=== PATIENT | male | born 2000 | race Caucasian/White ===

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

== ENCOUNTER 2021-09-10 13:26 | Emergency (ER) | payer BC, SELFPAY ==
--- OUTSIDE RECORDS SUMMARY | 2021-09-10 13:29 | XMS REPORT | Continuity of Care Document ---
:2000 Author Organization [facility] t Address [address] [place] [address] Care Team Providers Name Role Phone PCP, DOES NOT HAVE A Primary Care Physician Unavailable elias Attending Clinician Unavailable Cristela Birch MD Attending Clinician Cristela BIRCH Attending Clinician Unavailable Angela BUSH III Attending Clinician Unavailable Fredrick Chou DO Attending Clinician [email or web address] Admitting Clinician Unavailable Angela BUSH III Admitting Clinician Unavailable Payers Payer Name Policy Type Policy Number Effective Date Expiration Date S [place] [id number] 2014 00:00:00 [place] Problems Condition Condition Condition Status Onset Resolution Last Treating Co mments Source Name Details Category Date Date Treatment Clinician Date No known No known Disease Unive rs active active ity of problems problems [facility] Allergies, Adverse Reactions, Alerts Allergy Allergy Status Severity Reaction(s) Onset Inactive Treating Comm ents Source Name Type Date Date Clinician NO KNOWN Drug Active Univers ALLERGIE Class ity of S [facility] Social History Social Habit Start Date Stop Date Quantity Comments Source Exposure to SARS-CoV-2 Not sure [facility] [place] (event) [facility] Sex Assigned At Uni versity [facility] Smoking Status Start Date Stop Date Source Unknown if ever smoked [facility] y [facility] Medications Ordered Filled Start Stop Current Ordering Indication Dosage Frequency Signature Comments Components Source Medication Medication Date Date Medication? Clinician (SIG) Name Name erythromyci 2020-0 2020- No .5[in_u 0.5 Inch, Univers n 11-25 s] Both Eyes, ity of (ILOTYCIN) 09:15: 08:05 ONCE, 1 [place] as 5 mg/gram 00 :00 dose, Wed Medic al (0.5 %) 11/26/19 at [place] ophthalmic 0415, SHAYAN ointment 0.5 Inch HYDROcodone 2020- No 1{tbl} 1 tablet, Univers -acetaminop 11-25 Oral, ONCE i ty of hen (NORCO) 09:15: 08:05 NOW, 1 [place] as 10-325 mg 00 :00 dose, Wed Medic al tablet 1 11/26/19 at Branch tablet 0415, Routine traMADoL Yes [id number] 50mg Take 1 Univers (ULTRAM) 50 11-25 tablet by ity of mg tablet 00:00: mouth [place] 00 every 6 Medical (six) Branch hours as needed for Pain (scale 7-10). Indication s: acute pain erythromyci 2020- No [id number] .5[in_u Place 0.5 Univers n 5 mg/gram 11-25 s] Inches in it y of (0.5 %) 00:00: 04:59 [place] ophthal[place] 00 :00 4 (four) Medic al ointment times Branch daily for 5 days. Continue until you follow up with eye doctor. ondansetron 2018-03 Yes [id number] 4mg Take 1 Univers (ZOFRAN 2-05 tablet by ity of ODT) 4 mg 00:00: mouth [place] disintegrat 00 every 8 Medic al ing tablet (eight) Branch hours as needed for Nausea and Vomiting (N/V). traMADol 2018-03 Yes [id number] 50mg Take 1 Uni vers (ULTRAM) 50 2-05 tablet by ity of mg tablet 00:00: mouth [place] 00 every 8 Medical (eight) Branch hours as needed for Pain (scale 4-6). cephALEXin 2019- No [id number] 500mg Take 1 Univers (KEFLEX) 11-18 [id number] capsule by it y of 500 mg 00:00: 04:59 mouth 4 [place] capsule 00 :00 (four) Medical times Branch daily for 7 days. Vital Signs Vital Name Observation Time Observation Value Comments Source Systolic blood 2019-11-26 07:17:00 128 mm[Hg] Univer sity of pressure [place] [facility] Diastolic blood 2019-11-26 07:17:00 73 mm[Hg] Unive rsity of pressure [place] [facility] Heart rate 2019-11-26 07:17:00 88 /min [facility]i [facility] [place] [facility] [place] Body temperature 2019-11-26 07:17:00 36.11 [place] Univ ers[facility] [place] [facility] Respiratory rate 2019-11-26 07:17:00 18 /min Univ [facility] [place] [facility] Body weight 2019-11-26 07:17:00 63.504 kg [facility] [place] [facility] Oxygen saturation in 2019-11-26 07:17:00 99 /min University of Arterial blood by [facility] Pulse oximetry Branch Body temperature 2018-11-18 14:39:00 37.06 [place] [facility] [place] [facility] Respiratory rate 2018-11-18 14:39:00 18 /min Univ [facility] [place] [facility] Body weight 2018-11-18 14:39:00 54.432 kg [facility] [place] [facility] [place] Oxygen saturation in 2018-11-18 14:39:00 99 /min University of Arterial blood by [facility] Pulse oximetry Branch Systolic blood 2018-11-18 14:39:00 105 mm[Hg] Univer sity of pressure [place] [facility] Diastolic blood 2018-11-18 14:39:00 81 mm[Hg] Unive rsity of pressure [place] [facility] Heart rate 2018-11-18 14:39:00 96 /min [facility] [place] [facility] Procedures Procedure Date / Time Performed Performing Clinician [facility] e NOTICE OF PRIVACY 2019-11-26 07:15:17 Doctor Unassigned, No Univ ersity of [facility] Name Medical Branch CONSENT/REFUSAL FOR 2019-11-26 07:14:49 [facility] Branch TREATMENT NOTICE OF PRIVACY 2018-11-18 14:29:19 Doctor Unassigned, No Univ ersity of [facility] Name Medical Branch Encounters Start End Encounter Admission Attending Care Care Encounter Source Date/Time Date/Time Type Type Clinicians Facility Department ID 2020-02-04 2020-02-04 Outpatient keffer_a [facility] [id number] [place] 02:46:00 02:46:00 [facility] 2019-11-26 2019-11-26 Emergency Yaride, [facility] [id number] Univers 02:18:00 03:18:00 Fang Solano [id number] ity of [place] [id number] [facility] [id number] [place] [address] Branch 2019-11-26 2019-11-26 [facility] [id number] Univers 02:18:00 02:18:00 FANG [facility] 2019-02-20 2019-02-20 Emergency X ELEAZAR MCGINNIS, [facility] ERT [id number] Univers 18:22:53 20:16:00 SILVINA [facility] 2018-11-18 2018-11-18 Emergency [facility] [id number] Univers 09:41:11 10:30:00 Salima Solano [id number] ity of [place] [id number] [facility] [id number] [place] [address] Branch Results This patient has no known results.
[2021-09-10] MEDS ORDERED: CYCLOBENZAPRINE 10 MG TAB ONE (14:12)
[2021-09-10] MEDS ORDERED: KETOROLAC 30 MG/ML INJ ONE (14:13)
--- NOTE | 2021-09-10 14:44 | RAD REPORT ---
EXAM DESCRIPTION: RAD - C Spine Ap/Lat - 09/10/2021 2:28 pm CLINICAL HISTORY: PAIN COMPARISON: No comparisons FINDINGS: No acute fracture. Reversal of the normal cervical lordosis this could be positional or se condary to spasm. No significant focal degenerative changes. IMPRESSION: No acute osseous abnormality involving the cervical spine.
--- NOTE | 2021-09-10 14:44 | RAD REPORT ---
EXAM DESCRIPTION: RAD - Shoulder Right 2 View - 09/10/2021 2:28 pm CLINICAL HISTORY: PAIN COMPARISON: No comparisons FINDINGS/IMPRESSION: No acute fracture. No malalignment. No significant focal degenerative changes.
--- NOTE | 2021-09-10 14:45 | RAD REPORT ---
EXAM DESCRIPTION: RAD - Clavicle Right - 09/10/2021 2:28 pm CLINICAL HISTORY: PAIN COMPARISON: No comparisons FINDINGS: No acute fracture. No malalignment. No significant focal degenerative changes. IMPRESSION: No acute osseous abnormality involving the right clavicle.
--- NOTE | 2021-09-10 14:55 | EDPHYS ---
Physician Documentation [facility] Name: Sadiq Martinez Age: 21 yrs Sex: Male : 2000 Arrival Date: 09/10/2021 Time: 13:27 Bed 11 Private MD: ED Physician Nishant Whaley HPI: 09/10 13:45 This 21 yrs old Male presents to ER via Ambulatory with complaints of Neck Pain, <24hrs jh7 Old, Arm Pain, Shoulder Pain. 13:45 Onset: The symptoms/episode began/occurred 2 month(s) ago. Patient presents for jh7 right-sided neck, right collarbone, and right shoulder pain over the past 2 months. 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 No neurodeficits at this time.. Historical: - Allergies: 13:41 No Known Allergies; ld1 - Home Meds: 13:41 None [Active]; ld1 - PMHx: 13:41 None; ld1 - PSHx: 13:41 None; ld1 - Immunization history:: Adult Immunizations up to date, Client reports having NOT received the Covid vaccine. - Social history:: Smoking status: Patient reports the use of cigarette tobacco products, smokes one-half pack cigarettes per day, Patient uses alcohol, but reports only rare drinking. Patient/guardian denies using street drugs. ROS: 13:45 Constitutional: Negative for fever, chills, and weight loss, ENT: Negative for injury, jh7 pain, and discharge, Cardiovascular: Negative for chest pain, palpitations, and edema, Respiratory: Negative for shortness of breath, cough, wheezing, and pleuritic chest pain, Abdomen/GI: Negative for abdominal pain, nausea, vomiting, diarrhea, and constipation, Back: Negative for injury and pain, Skin: Negative for injury, rash, and discoloration, Neuro: Negative for headache, weakness, numbness, tingling, and seizure. 13:45 Neck: Positive for pain with movement, stiffness, tenderness, Negative for swelling. 13:45 MS/extremity: Positive for pain, tenderness, Negative for acute changes, contusion, laceration, swelling. Exam: 13:45 Constitutional: This is a well developed, well nourished patient who is awake, alert, jh7 and in no acute distress. ENT: Nares patent. No nasal discharge, no septal abnormalities noted. Mucous membranes moist. Chest/axilla: Normal chest wall appearance and motion. Nontender with no deformity. No lesions are appreciated. Cardiovascular: Regular rate and rhythm with a normal S1 and S2. No gallops, murmurs, or rubs. Normal PMI, no JVD. No pulse deficits. Respiratory: Lungs have equal breath sounds bilaterally, clear to auscultation and percussion. No rales, rhonchi or wheezes noted. No increased work of breathing, no retractions or nasal flaring. Abdomen/GI: Soft, non-tender, with normal bowel sounds. No distension or tympany. No guarding or rebound. No evidence of tenderness throughout. Skin: Warm, dry with normal turgor. Normal color with no rashes, no lesions, and no evidence of cellulitis. Neuro: Awake and alert, GCS 15, oriented to person, place, time, and situation. Motor strength 5/5 in all extremities. Sensory grossly intact. Normal gait. 13:45 Neck: External neck: Tenderness noted to right paraspinal C-spine with no tenderness over the spine, deformity, or step-off. No swelling is also noted., C-spine: appears grossly normal, ROM/movement: limited range of motion, that is mild, when rotating to the left, with flexion, with extension. 13:45 Musculoskeletal/extremity: Extremities: all appear grossly normal, with no appreciated pain with palpation, ROM: limited active range of motion, in the right scapular area and right trapezius, Difficulty with abduction of the R shoulder beyond 90 degrees, Circulation is intact in all extremities. Sensation intact. Vital Signs: 13:40 BP 117 / 55; Pulse 69; Resp 18; Temp 98.1(TE); Pulse Ox 98% on R/A; Weight 72.57 kg; ld1 Height 5 ft. 8 in. (172.72 cm); Pain 6/10; 13:40 Body Mass Index 24.33 (72.57 kg, 172.72 cm) ld1 MDM: 13:48 Patient medically screened. [facility] 15:00 Differential diagnosis: arthritis, cervical strain, torticollis, Whiplash Injury. Data [facility] reviewed: vital signs, nurses notes, radiologic studies, plain films. Data interpreted: Pulse oximetry: is 98 %. Interpretation: normal. Counseling: I had a detailed discussion with the patient and/or guardian regarding: the historical points, exam findings, and any diagnostic results supporting the discharge/admit diagnosis, the need for outpatient follow up, a orthopedic surgeon, to return to the emergency department if symptoms worsen or persist or if there are any questions or concerns that arise at home. ED course: Informed the patient of his negative x-ray results. Symptoms improved after medication administration. Informed him that since he has been having this pain for 1 to 2 months, he should follow-up with Ortho if symptoms persist. He may return to the ER at any time if any new concerning symptoms develop.. 09/10 13:54 Order name: XRAY C Spine Ap/lat; Complete Time: 14:57 [facility] 09/10 13:54 Order name: XRAY Clavicle RIGHT; Complete Time: 14:57 [facility] 09/10 13:54 Order name: XRAY Shoulder RIGHT 2 view; Complete Time: 14:57 [facility] Administered Medications: 15:01 Drug: Flexeril (cyclobenzaprine) 10 mg Route: PO; ld1 15:01 Drug: Ketorolac 60 mg Route: IM; Site: right deltoid; ld1 Disposition Summary: 09/10/21 14:55 Discharge Ordered Location: Home [facility] Problem: an ongoing problem [facility] Symptoms: have improved [facility] Condition: Stable 7 Diagnosis - Muscle spasm 7 Followup: [facility] - With: Emergency Department - When: 2 - 3 days - Reason: Recheck today's complaints Discharge Instructions: - Discharge Summary Sheet [facility] - Muscle Strain [facility] - Shoulder Pain [facility] Forms: - Medication Reconciliation Form [facility] - Thank You Letter [facility] Prescriptions: - Naprosyn 500 mg Oral Tablet - take 1 tablet by ORAL route 2 times per day take with food; 30 tablet; Refills: 7 0, Product Selection Permitted - Zanaflex 4 mg Oral Tablet - take 1 tablet by ORAL route every 8 hours As needed; 20 tablet; Refills: 0, jh7 Product Selection Permitted Addendum: 09/11/2021 18:00 Co-signature as Attending Physician, Nishant Whaley MD. m a2 Signatures: Dispatcher [employer] EDNishant Mark MD MD ma2 Malina Villavicencio RN RN ld1 Suzie Santiago FNP FNP jh7
--- NOTE | 2021-09-10 14:55 | ER ---
Nurse's Notes [facility] Name: Sadiq Martinez Age: 21 yrs Sex: Male : 2000 Arrival Date: 09/10/2021 Time: 13:27 Bed 11 Private MD: Diagnosis: Muscle spasm Presentation: 09/10 13:40 Chief complaint: Patient states: Right shoulder, collar bone, neck pain - radiates back ld1 around my shoulder blade. Denies injury. Pain began 1-2 months ago. "I have been trying to deal with it but it is getting worse." Feels like it constantly needs to be popped. Coronavirus screen: At this time, the client does not indicate any symptoms associated with coronavirus-19. Ebola Screen: No symptoms or risks identified at this time. Acute neurological deficit: none identified. Initial Sepsis Screen: Does the patient meet any 2 criteria? No. Patient's initial sepsis screen is negative. Does the patient have a suspected source of infection? No. Patient's initial sepsis screen is negative. Risk Assessment: Do you want to hurt yourself or someone else? Patient reports no desire to harm self or others. Onset of symptoms was September 10, 2021. 13:40 Method Of Arrival: Ambulatory ld1 13:40 Acuity: FERNANDO 4 ld1 Triage Assessment: 13:41 General: Appears in no apparent distress. comfortable, Behavior is calm, cooperative, ld1 appropriate for age. Pain: Complains of pain in right arm Pain radiates to right trapezius, right scapular area and right subscapular area Pain currently is 6 out of 10 on a pain scale. at worst was 10 out of 10 on a pain scale. EENT: No signs and/or symptoms were reported regarding the EENT system. Neuro: Level of Consciousness is awake, alert, obeys commands, Oriented to person, place, time, situation. Cardiovascular: Capillary refill < 3 seconds Patient's skin is warm and dry. Respiratory: Airway is patent Respiratory effort is even, unlabored. GI: Abdomen is flat, non-distended. : No signs and/or symptoms were reported regarding the genitourinary system. Derm: No signs and/or symptoms reported regarding the dermatologic system. Musculoskeletal: Reports pain in back and right arm. Historical: - Allergies: 13:41 No Known Allergies; ld1 - Home Meds: 13:41 None [Active]; ld1 - PMHx: 13:41 None; ld1 - PSHx: 13:41 None; ld1 - Immunization history:: Adult Immunizations up to date, Client reports having NOT received the Covid vaccine. - Social history:: Smoking status: Patient reports the use of cigarette tobacco products, smokes one-half pack cigarettes per day, Patient uses alcohol, but reports only rare drinking. Patient/guardian denies using street drugs. Screenin:06 Abuse screen: Denies threats or abuse. Denies injuries from another. Nutritional ld1 screening: No deficits noted. Tuberculosis screening: No symptoms or risk factors identified. Fall Risk None identified. Assessment: 15:06 Reassessment: see triage assessment. ld1 Vital Signs: 13:40 BP 117 / 55; Pulse 69; Resp 18; Temp 98.1(TE); Pulse Ox 98% on R/A; Weight 72.57 kg; ld1 Height 5 ft. 8 in. (172.72 cm); Pain 6/10; 13:40 Body Mass Index 24.33 (72.57 kg, 172.72 cm) ld1 ED Course: 13:27 Patient arrived in ED. am2 13:37 [facility] jh7 13:37 Nishant Whaley MD is Attending Physician. jh7 13:41 Triage completed. ld1 13:41 Arm band placed on right wrist. ld1 14:08 Cally Leavitt, EV is Primary Nurse. jl7 14:29 XRAY C Spine Ap/lat In Process Unspecified. EDMS 14:29 XRAY Clavicle RIGHT In Process Unspecified. EDMS 14:29 XRAY Shoulder RIGHT 2 view In Process Unspecified. EDMS 15:06 Patient has correct armband on for positive identification. Placed in gown. Bed in low ld1 position. Call light in reach. Side rails up X2. high pressure cleaner on. Pulse ox on. NIBP on. Door closed. Noise minimized. Warm blanket given. 15:06 No provider procedures requiring assistance completed. Patient did not have IV access ld1 during this emergency room visit. Administered Medications: 15:01 Drug: Flexeril (cyclobenzaprine) 10 mg Route: PO; ld1 15:01 Drug: Ketorolac 60 mg Route: IM; Site: right deltoid; ld1 Medication: 15:06 VIS not applicable for this client. ld1 Outcome: 14:55 Discharge ordered by MD. rushing 15:06 Discharged to home ambulatory. ld1 15:06 Condition: good 15:06 Discharge instructions given to patient, Instructed on discharge instructions, follow up and referral plans. medication usage, Demonstrated understanding of instructions, follow-up care, medications, Prescriptions given X 2. 15:07 Patient left the ED. ld1 Signatures: Dispatcher [employer] EDCally Ritter RN RN jl7 Iveth Avila Lauren, RN RN ld1 Suzie Santiago FNP FNP 7
[2021-09-10 15:28] VITALS: BP 117/55; TEMP 98.1; O2SAT 98
== END 2021-09-10 15:07 | disposition home or self-care (01) ==
LOC: ER 13:26
DX: M62.838 Other muscle spasm (principal); M25.511 Pain in right shoulder; F17.210 Nicotine dependence, cigarettes, uncomplicated
CPT/HCPCS: 72040; 96372; 99284

== ENCOUNTER 2023-11-08 17:21 | Emergency (ER) | payer SELFPAY ==
--- OUTSIDE RECORDS SUMMARY | 2023-11-08 17:24 | XMS REPORT | Continuity of Care Document ---
Author Name Unknown Address [address] [place] [address] [facility] thconnect Address [address] [place] [address] Care Team Providers Care Brush Cleaner Name Role Phone PCP, PATIENT DOES NOT HAVE A Primary Care Physic satnam Unavailable ONIEL PAULA Attending Clinician Unavailable elias Attending Clinician Unavailable Fang Birch MD Attending Clinician [phone] FANG BIRCH Attending Clinician Unavailable SILVINA BUSH III Attending Clinician UnavailSalima Peterson DO Attending Clinician [phone] ANURAG ESTEBAN Attending Clinician Unavailable EVARISTO OGLESBY Attending Clinician Unavailable elias Admitting Clinician Unavailable SILVINA BUSH III Admitting Clinician Unavaila ke Payers Payer Name Policy Type Policy Number Effective Date Expir[place] on Date Source [place] [id number] 2014 00:00:00 Problems Condition Name Condition Details Condition Category Status Onset Date Resolution Date Last Treatment Date Treating Clinician Comments Source No known active problems No known active problems Disease [facility] Allergies, Adverse Reactions, Alerts Allergy Name Allergy Type Status Severity Reaction(s) Onset Date Inactive Date Treating Clinician Comments Source NO KNOWN ALLERGIE S Drug Class Active [facility] Social History Social Habit Start Date Stop Date Quantity Comments Source Exposure to SARS-CoV-2 (event) Not sure [facility] Sex Assigned [facility] Smoking Status Start Date Stop Date Source Unknown if ever smoked [facility] Medications Ordered Medication Name Filled Medication Name Start Date Stop Date Current Medication? Ordering Clinician Indication Dosage Frequency Signature (SIG) Comments Components Source erythromyci n (ILOTYCIN) 5 mg/gram (0.5 %) ophthalmic ointment 0.5 Inch 11-25 09:15: 11-25 08:05 :00 No .5[in_u s] 0.5 Inch, Both Eyes, ONCE, 1 dose, Sun11/26/19 at 0415, [facility] HYDROcodone -acetaminop hen (NORCO) 10-325 mg tablet 1 tablet 11-25 09:15: 11-25 08:05 :00 No 1{tbl} 1 tablet, Oral, ONCE NOW, 1 dose, Sun11/26/19 at 0415, Routine [facility] traMADoL (ULTRAM) 50 mg tablet 11-25 00:00: 00 Yes [id number] 50mg Take 1 tablet by mouth every 6 (six) hours as needed for Pain (scale 7-10). Indication s: acute pain [facility] erythromyci n 5 mg/gram (0.5 %) ophthalmic ointment 11-25 00:00: 00 12-01 04:59 :00 No [id number] .5[in_u s] Place 0.5 Inches in both eyes 4 (four) times daily for 5 days. Continue until you follow up with eye doctor. [facility] ondansetron (ZOFRAN ODT) 4 mg disintegrat ing tablet 2018-03 00:00: 00 Yes [id number] 4mg Take 1 tablet by mouth every 8 (eight) hours as needed for Nausea and Vomiting (N/V). [facility] traMADol (ULTRAM) 50 mg tablet 2018-03 00:00: 00 Yes [id number] 50mg Take 1 tablet by mouth every 8 (eight) hours as needed for Pain (scale 4-6). [facility] cephALEXin (KEFLEX) 500 mg capsule 11-18 00:00: 00 11-26 04:59 :00 No [id number] 500mg Take 1 capsule by mouth 4 (four) times daily for 7 days. [facility] Vital Signs Vital Name Observation Time Observation Value Comments S ource Systolic blood pressure 2019-11-26 07:17:00 128 mm[Hg] [facility] Diastolic blood pressure 2019-11-26 07:17:00 73 mm[Hg] [facility] Heart rate 2019-11-26 07:17:00 88 /min [facility] Body temperature 2019-11-26 07:17:00 36.11 [facility] Respiratory rate 2019-11-26 07:17:00 18 /min [facility] Body weight 2019-11-26 07:17:00 63.504 kg [facility] Oxygen saturation in Arterial blood by Pulse oximetry 2019-11-26 07:17:00 99 /min [facility] Body temperature 2018-11-18 14:39:00 37.06 [facility] Respiratory rate 2018-11-18 14:39:00 18 /min [facility] Body weight 2018-11-18 14:39:00 54.432 kg [facility] Oxygen saturation in Arterial blood by Pulse oximetry 2018-11-18 14:39:00 99 /min [facility] Systolic blood pressure 2018-11-18 14:39:00 105 mm[Hg] [facility] Diastolic blood pressure 2018-11-18 14:39:00 81 mm[Hg] [facility] Heart rate 2018-11-18 14:39:00 96 /min [facility] Procedures Procedure Date / Time Performed Performing Clinicia n Source NOTICE OF PRIVACY PRACTICES 2019-11-26 07:15:17 Doctor Unassigned, [place] [facility] CONSENT/REFUSAL FOR DIAGNOSIS AND TREATMENT 2019-11-26 07:14:49 Doctor Unassigned, [place] [facility] NOTICE OF PRIVACY PRACTICES 2018-11-18 14:29:19 Doctor Unassigned, [place] [facility] Encounters Start Date/Time End Date/Time Encounter Type Admission Type Attending [facility] Care Department Encounter ID Source 2022-05-23 18:33:05 Emergency HFD HFD [id number] [facility] ent 2022-05-23 17:17:00 2022-05-23 19:27:00 Emergency E ONIEL PUALA [id number] 2020-02-04 02:46:00 2020-02-04 02:46:00 Outpatient elias [facility] [id number] [facility] 2019-11-26 02:18:00 2019-11-26 03:18:00 Emergency Brennan Birchsundar [facility] [id number] [facility] 2019-11-26 02:18:00 2019-11-26 02:18:00 Emergency X MARCELADAILYANDREFANG [facility] ERT [id number] [facility] 2019-02-20 18:22:53 2019-02-20 20:16:00 Emergency X SILVINA BUSH III [facility] ERT [id number] [facility] 2018-11-18 09:41:11 2018-11-18 10:30:00 Emergency Salima Chou [facility] [id number] [facility] 2017-10-29 13:55:00 2017-10-29 15:02:00 Emergency ER ANURAG ESTEBAN [facility] [id number] [facility] 2016-08-28 11:26:00 2016-08-28 11:26:00 Outpatient EVARISTO ZURITA [facility] [id number] [facility]
[2023-11-08] MEDS ORDERED: CYCLOBENZAPRINE 10 MG TAB ONE (17:47)
[2023-11-08] MEDS ORDERED: KETOROLAC 30 MG/ML INJ ONE (17:47)
[2023-11-08] MEDS ORDERED: HYDROCODONE/APAP 7.5/325 MG TAB ONE (17:47)
--- NOTE | 2023-11-08 19:09 | RAD REPORT ---
EXAM DESCRIPTION: RAD - Thoracic Spine Ap/Lat - 11/08/2023 5:58 pm CLINICAL HISTORY: PAIN COMPARISON: No comparisons TECHNIQUE: Thoracic spine, 2 views. FINDINGS: Thoracic vertebral bodies are normal in height and alignment. There are no acute or destru ctive bony processes see. No paraspinal masses are identified. No disc space narrowing. IMPRESSION: Negative thoracic spine examination.
--- NOTE | 2023-11-08 19:14 | RAD REPORT ---
EXAM DESCRIPTION: RAD - Lumbar Spine 3 Views - 11/08/2023 5:59 pm CLINICAL HISTORY: PAIN COMPARISON: No comparisons TECHNIQUE: Lumbar spine, 3 views. FINDINGS: Lumbar vertebral bodies are normal in height and alignment. No fracture or acute bony proc ess seen. No disc space narrowing. No other significant findings. IMPRESSION: Negative Lumbar Spine examination.
--- NOTE | 2023-11-08 19:40 | ER ---
Nurse's Notes [facility] Name: Sadiq Martinze Age: 23 yrs Sex: Male : 2000 Arrival Date: 11/08/2023 Time: 17:21 Bed 18 Private MD: Diagnosis: Strain of muscle, fascia and tendon of lower back Presentation: 11/07 17:28 Chief complaint: Patient states: Pt c/o middle back pain since yesterday. Pt states he dd2 fell from the attic, through sheet rock and landed on his back on a 2x4. Coronavirus screen: At this time, the client does not indicate any symptoms associated with coronavirus-19. Ebola Screen: No symptoms or risks identified at this time. Initial Sepsis Screen: Does the patient meet any 2 criteria? No. Patient's initial sepsis screen is negative. Does the patient have a suspected source of infection? No. Patient's initial sepsis screen is negative. Risk Assessment: Do you want to hurt yourself or someone else? Patient reports no desire to harm self or others. Onset of symptoms was November 07, 2023. 17:28 Method Of Arrival: Ambulatory dd2 17:28 Acuity: FERNANDO 3 dd2 Triage Assessment: 17:31 General: Appears uncomfortable, Behavior is calm, cooperative. Pain: Complains of pain dd2 in lumbar area Pain currently is 10 out of 10 on a pain scale. Musculoskeletal: Circulation, motion, and sensation intact. Reports pain in lumbar area. Historical: - Allergies: 17:31 No Known Allergies; dd2 - Home Meds: 17:31 None [Active]; dd2 - PMHx: 17:31 None; dd2 - PSHx: 17:31 Knee - Left; dd2 - Immunization history:: Adult Immunizations unknown. - Infectious Disease History:: Denies. - Social history:: Smoking status: Patient reports the use of cigarette tobacco products, smokes one pack cigarettes per day. Screenin:35 [facility] ED Fall Risk Assessment (Adult) History of falling in the last 3 months, ar6 including since admission Yes- single mechanical fall (1 pt) Confusion or Disorientation No (0 pts) Intoxicated or Sedated No (0 pts) Impaired Gait No (0 pts) Mobility Assist Device Used No (0 pt) Altered Elimination No (0 pt) Score/Fall Risk Level 0 - 2 = Low Risk Oriented to surroundings, Maintained a safe environment, Educated pt \T\ family on fall prevention, incl call for assistance when getting out of bed, Assessed \T\ reinforced patient's understanding of fall precautions, Hourly rounding (assess needs \T\ fall precautionary measures) done. Abuse screen: Denies threats or abuse. Denies injuries from another. Nutritional screening: No deficits noted. Tuberculosis screening: No symptoms or risk factors identified. Assessment: 17:25 General: Appears in no apparent distress. uncomfortable, Behavior is calm, cooperative, ar6 appropriate for age. Pain: Complains of pain in back Pain does not radiate. Pain currently is 10 out of 10 on a pain scale. Quality of pain is described as sharp, Pain began 1 day ago. Is continuous, Also complains of inability to work. Neuro: Level of Consciousness is awake, alert, obeys commands, Oriented to person, place, time, situation. Cardiovascular: Capillary refill < 3 seconds. Respiratory: Airway is patent. GI: Abdomen is non-distended. : No signs and/or symptoms were reported regarding the genitourinary system. EENT: Oral mucosa is moist. Derm: Skin is intact, is healthy with good turgor, Skin is dry, Skin is pink, warm \T\ dry. Skin temperature is warm. Musculoskeletal: Tenderness present in back Reports pain in back since yesterday. Injury Description: Bruise sustained to back. Vital Signs: 17:28 BP 113 / 66; Pulse 87; Resp 16; Temp 97; Pulse Ox 100% ; dd2 17:35 BP 123 / 75; Pulse 71; Resp 18; Pulse Ox 100% on R/A; Pain 10/10; ar6 19:12 BP 120 / 73; Pulse 63; Resp 14; Pulse Ox 100% ; Pain 6/10; jm12 17:35 Pain Scale: Adult ar6 19:12 Pain Scale: Adult jm12 ED Course: 17:23 Patient arrived in ED. mg5 17:24 Latasha Hewitt PA-C is PHCP. sb4 17:24 Saji Pedraza MD is Attending Physician. sb4 17:31 Triage completed. dd2 17:31 Arm band placed on right wrist. Patient placed in waiting room, in view of staff dd2 members, Patient notified of wait time. 17:35 No apparent distress. Awaiting for x-ray. ar6 17:35 Patient has correct armband on for positive identification. Placed in gown. Bed in low ar6 position. Call light in reach. Side rails up X 1. Provided Education on: medications. Pulse ox on. NIBP on. Door closed. Noise minimized. Lights dimmed. Moved to private room. Warm blanket given. Verbal reassurance given. Head of bed elevated. 17:35 No provider procedures requiring assistance completed. ar6 17:43 Mandi Islas, RN is Primary Nurse. ar6 18:00 Spine Thoracic Ap/Lat XRAY In Process Unspecified. EDMS 18:00 Lumbar Spine (3 Views) XRAY In Process Unspecified. EDMS 18:59 Report given to EV Torres. mb9 Administered Medications: 18:13 Drug: Ketorolac IM 30 mg IM once Route: IM; Site: right deltoid; ar6 18:50 Follow up: Response: No adverse reaction mb9 18:13 Drug: Cyclobenzaprine PO 10 mg PO once Route: PO; ar6 18:51 Follow up: Response: No adverse reaction mb9 18:13 Drug: Hydrocodone-Acetaminophen PO (7.5 mg-325 mg) 1 tabs PO once Route: PO; ar6 18:51 Follow up: Response: No adverse reaction 9 19:12 Follow up: BP 120 / 73; Pulse 63 bpm; Resp 14 bpm; Pulse Ox 100% ; Pain 6/10 Adult; jm12 Response: Marked relief of symptoms; Pain is decreased Medication: 17:35 VIS not applicable for this client. ar6 Outcome: 19:39 Discharge ordered by . hans 20:07 Discharged to home ambulatory, [facility] 20:07 Condition: stable 20:07 Discharge instructions given to patient, Instructed on discharge instructions, follow up and referral plans. medication usage, Demonstrated understanding of instructions, follow-up care, medications, Prescriptions given X 3, 20:07 Patient left the ED. [facility] Signatures: Dispatcher [employer] Latasha Peñaloza, MARSHALL PABruno [email or web address] Kaelyn Bello RN RN mb9 Nallely Valerio mg5 Deisy Trevino RN RN jm12 Mandi Islas, RN RN [email or web address] RAMÓN HAMMOND RN RN dd2
--- NOTE | 2023-11-08 19:40 | EDPHYS ---
Physician Documentation [facility] Name: Sadiq Martinez Age: 23 yrs Sex: Male : 2000 Arrival Date: 11/08/2023 Time: 17:21 Bed 18 Private MD: ED Physician Saji Pedraza HPI: 11/07 18:29 This 23 yrs old Male presents to ER via Ambulatory with complaints of Back Pain. sb4 18:29 The patient presents with pain that is acute, and an injury. The symptoms are located sb4 in the lumbar area. Onset: The symptoms/episode began/occurred yesterday. The pain does not radiate. Associated signs and symptoms: The patient has no apparent associated signs or symptoms. The problem was sustained during a fall. Modifying factors: The patient symptoms are alleviated by rest, specific position, the patient symptoms are aggravated by any movement. The patient has not experienced similar symptoms in the past. The patient has not recently seen a physician. Historical: - Allergies: 17:31 No Known Allergies; dd2 - Home Meds: 17:31 None [Active]; dd2 - PMHx: 17:31 None; dd2 - PSHx: 17:31 Knee - Left; dd2 - Immunization history:: Adult Immunizations unknown. - Infectious Disease History:: Denies. - Social history:: Smoking status: Patient reports the use of cigarette tobacco products, smokes one pack cigarettes per day. ROS: 18:29 Constitutional: Negative for fever, chills, and weight loss, sb4 18:29 Back: Positive for injury or acute deformity, decreased range of motion, pain at rest, pain with movement, of the lumbar area, 18:29 All other systems are negative, Exam: 18:29 Head/Face: Normocephalic, atraumatic. Eyes: Extra-ocular motions intact. Periorbital sb4 areas with no swelling, redness, or edema. ENT: Mucous membranes moist. Skin: Warm, dry with normal turgor. Normal color with no rashes, no lesions, and no evidence of cellulitis. MS/ Extremity: Pulses equal, no cyanosis. Neurovascular intact. Full, normal range of motion. Neuro: Awake and alert, GCS 15, oriented to person, place, time, and situation. Motor strength 5/5 in all extremities. Sensory grossly intact. 18:29 Constitutional: The patient appears alert, awake, in obvious pain, uncomfortable, 18:29 Back: pain, that is moderate, ROM is painful, with all movement, normal spinal alignment noted, CVA tenderness, is absent, muscle spasm, is not present, 18:29 Neuro: Motor: moves all fours, Sensation: is normal, Gait: is steady, Vital Signs: 17:28 BP 113 / 66; Pulse 87; Resp 16; Temp 97; Pulse Ox 100% ; dd2 17:35 BP 123 / 75; Pulse 71; Resp 18; Pulse Ox 100% on R/A; Pain 10/10; ar6 19:12 BP 120 / 73; Pulse 63; Resp 14; Pulse Ox 100% ; Pain 6/10; jm12 17:35 Pain Scale: Adult ar6 19:12 Pain Scale: Adult jm12 MDM: 17:34 Patient medically screened. sb4 19:39 Data reviewed: vital signs, nurses notes, radiologic studies, and as a result, I will sb4 discharge patient. Counseling: I had a detailed discussion with the patient and/or guardian regarding the historical points, exam findings, and any diagnostic results supporting the discharge/admit diagnosis, radiology results, to return to the emergency department if symptoms worsen or persist or if there are any questions or concerns that arise at home. 11/07 17:42 Order name: Spine Thoracic Ap/Lat XRAY; Complete Time: 19:10 sb4 11/07 17:42 Order name: Lumbar Spine (3 Views) XRAY; Complete Time: 19:17 sb4 Administered Medications: 18:13 Drug: Ketorolac IM 30 mg IM once Route: IM; Site: right deltoid; ar6 18:50 Follow up: Response: No adverse reaction mb9 18:13 Drug: Cyclobenzaprine PO 10 mg PO once Route: PO; ar6 18:51 Follow up: Response: No adverse reaction mb9 18:13 Drug: Hydrocodone-Acetaminophen PO (7.5 mg-325 mg) 1 tabs PO once Route: PO; ar6 18:51 Follow up: Response: No adverse reaction mb9 19:12 Follow up: BP 120 / 73; Pulse 63 bpm; Resp 14 bpm; Pulse Ox 100% ; Pain 6/10 Adult; jm12 Response: Marked relief of symptoms; Pain is decreased Disposition Summary: 11/08/23 19:39 Discharge Ordered Notes: Location: Home sb4 Problem: new sb4 Symptoms: have improved sb4 Condition: Stable sb4 Diagnosis - Strain of muscle, fascia and tendon of lower back sb4 Followup: sb4 - With: Private Physician - When: As needed - Reason: Recheck today's complaints, Re-evaluation by your physician Discharge Instructions: - Discharge Summary Sheet sb4 - Acute Back Pain, Adult sb4 - Low Back Sprain or Strain Rehab sb4 Forms: - Patient Portal Instructions sb4 - Leadership Thank You Letter sb4 - Work release form jm12 Prescriptions: - Cyclobenzaprine 10 mg Oral Tablet - take 1 tablet ORAL route every 8 hours As needed; 30 tablet; Refills: 0, sb4 Product Selection Permitted - Diclofenac Sodium 75 mg Oral Tablet Sustained Release - take 1 tablet ORAL route 2 times per day; 30 tablet; Refills: 0, Product sb4 Selection Permitted - Medrol (Wojciech) 4 mg Oral Tablets, Dose Pack - take 1 tablet ORAL route as directed - follow package instructions; 1 packet; sb4 Refills: 0, Product Selection Permitted Addendum: 11/12/2023 16:08 I was immediately available for consultation during this patient's visit. I did not e c2 personally see the patient or discuss the patient with the JEMMA. . Signatures: Dispatcher [employer] Latasha Peñaloza PA-C PA-C sb4 Saji Pedraza MD MD ec2 Mandi Islas RN RN ar6 RAMÓN HAMMOND RN RN dd2 Kaelyn Bello RN mb9 Deisy Trevino RN jm12
[2023-11-08 20:13] VITALS: TEMP 97; O2SAT 100
[2023-11-08 20:16] VITALS: BP 120/73
== END 2023-11-08 20:07 | disposition home or self-care (01) ==
LOC: ER 17:21
DX: S39.012A Strain of muscle, fascia and tendon of lower back, initial encounter (principal); F17.210 Nicotine dependence, cigarettes, uncomplicated
CPT/HCPCS: 72070; 72100; 96372; 99284

== ENCOUNTER 2024-01-19 11:25 | Emergency (ER) | payer OTHER ==
--- OUTSIDE RECORDS SUMMARY | 2024-01-19 11:26 | XMS REPORT | Continuity of Care Document ---
Author Name Unknown Address [address] [place] [address] [facility] Address [address] [place] [address] Support Name Relationship Address [place] [address] LUIS PARRA Unknown FIDEL GREGORY Edyta [address] [place] [address] Unavailable FIDEL ELLIOTCHUCHO Rios [address] [place] [address] Unavailable DONALD TEIXEIRA Grandparent [address] [place] [address] Unavailable Care Team Providers Care Clay Preparation Supervisor Name Role Phone PCP, PATIENT DOES NOT HAVE A Primary Care Physic satnam Unavailable ONIEL PAULA Attending Clinician Unavailable elias Attending Clinician Unavailable Fang Birch MD Attending Clinician [phone] FANG BIRCH Attending Clinician Unavailable SILVINA BUSH III Attending Clinician UnavailSalima Peterson DO Attending Clinician [phone] ANURAG ESTEBAN Attending Clinician Unavailable EVARISTO OGLESBY Attending Clinician Unavailable elias Admitting Clinician Unavailable SILVINA BUSH III Admitting Clinician Unavaila ke Payers Payer Name Policy Type Policy Number Effective Date Expir[place] on Date Source [place] [id number] 2014 00:00:00 Problems Condition Name Condition Details Condition Category Status Onset Date Resolution Date Last Treatment Date Treating Clinician Comments Source No known active problems No known active problems Disease [facility] Allergies, Adverse Reactions, Alerts Allergy Name Allergy Type Status Severity Reaction(s) Onset Date Inactive Date Treating Clinician Comments Source NO KNOWN ALLERGIE S Drug Class Active [facility] Social History Social Habit Start Date Stop Date Quantity Comments Source Exposure to SARS-CoV-2 (event) Not sure [facility] Sex Assigned At [facility] Smoking Status Start Date Stop Date Source Unknown if ever smoked [facility] Medications Ordered Medication Name Filled Medication Name Start Date Stop Date Current Medication? Ordering Clinician Indication Dosage Frequency Signature (SIG) Comments Components Source erythromyci n (ILOTYCIN) 5 mg/gram (0.5 %) ophthalmic ointment 0.5 Inch 11-25 09:15: 00 11-25 08:05 :00 No .5[in_u s] 0.5 Inch, Both Eyes, ONCE, 1 dose, Sun11/26/19 at 0415, SHAYAN [facility] HYDROcodone -acetaminop hen (NORCO) 10-325 mg tablet 1 tablet 11-25 09:15: 00 11-25 08:05 :00 No 1{tbl} 1 tablet, Oral, ONCE NOW, 1 dose, Sun11/26/19 at 0415, Routine [facility] traMADoL (ULTRAM) 50 mg tablet 11-25 00:00: 00 Yes [id number] 50mg Take 1 tablet by mouth every 6 (six) hours as needed for Pain (scale 7-10). Indication s: acute pain [facility] erythromyci n 5 mg/gram (0.5 %) ophthalmic ointment 11-25 00:00: 00 12-01 04:59 :00 No [id number] .5[in_u s] Place 0.5 Inches in both eyes 4 (four) times daily for 5 days. Continue until you follow up with eye doctor. [facility] ondansetron (ZOFRAN ODT) 4 mg disintegrat ing tablet 2018-03 00:00: 00 Yes [id number] 4mg Take 1 tablet by mouth every 8 (eight) hours as needed for Nausea and Vomiting (N/V). [facility] traMADol (ULTRAM) 50 mg tablet 2018-03 00:00: 00 Yes [id number] 50mg Take 1 tablet by mouth every 8 (eight) hours as needed for Pain (scale 4-6). [facility] cephALEXin (KEFLEX) 500 mg capsule 11-18 00:00: 00 11-26 04:59 :00 No [id number] 500mg Take 1 capsule by mouth 4 (four) times daily for 7 days. [facility] Vital Signs Vital Name Observation Time Observation Value Comments S ource Systolic blood pressure 2019-11-26 07:17:00 128 mm[Hg] [facility] Diastolic blood pressure 2019-11-26 07:17:00 73 mm[Hg] [facility] Heart rate 2019-11-26 07:17:00 88 /[facility] Body temperature 2019-11-26 07:17:00 36.11 [facility] Respiratory rate 2019-11-26 07:17:00 18 /min [facility] Body weight 2019-11-26 07:17:00 63.504 kg [facility] Oxygen saturation in Arterial blood by Pulse oximetry 2019-11-26 07:17:00 99 /min [facility] Body temperature 2018-11-18 14:39:00 37.06 [facility] Respiratory rate 2018-11-18 14:39:00 18 /min [facility] Body weight 2018-11-18 14:39:00 54.432 kg [facility] Oxygen saturation in Arterial blood by Pulse oximetry 2018-11-18 14:39:00 99 /min [facility] Systolic blood pressure 2018-11-18 14:39:00 105 mm[Hg] [facility] Diastolic blood pressure 2018-11-18 14:39:00 81 mm[Hg] [facility] Heart rate 2018-11-18 14:39:00 96 /min [facility] Procedures Procedure Date / Time Performed Performing Clinicia n Source NOTICE OF PRIVACY PRACTICES 2019-11-26 07:15:17 Doctor Unassigned, [place] [facility] CONSENT/REFUSAL FOR DIAGNOSIS AND TREATMENT 2019-11-26 07:14:49 Doctor Unassigned, [place] [facility] NOTICE OF PRIVACY PRACTICES 2018-11-18 14:29:19 Doctor Unassigned, [place] [facility] Encounters Start Date/Time End Date/Time Encounter Type Admission Type Attending [facility] Care Facility Care Department Encounter ID Source 2022-05-23 18:33:05 Emergency HFD [facility] [id number] [facility] ent 2022-05-23 17:17:00 2022-05-23 19:27:00 Emergency E ONIEL PAULA [facility] [id number] [facility] 2020-02-04 02:46:00 2020-02-04 02:46:00 Outpatient elias MMPuneet [facility] [id number] [employer] 2019-11-26 02:18:00 2019-11-26 03:18:[address] [facility] [id number] [facility] 2019-11-26 02:18:00 2019-11-26 02:18:00 Emergency X MARCELADAILYANDREFANG [facility] ERT [id number] [facility] 2019-02-20 18:22:53 2019-02-20 20:16:00 Emergency X ELEAZAR MCGINNISSUJEYSILVINA [facility] ERT [id number] [facility] 2018-11-18 09:41:11 2018-11-18 10:30:[address] [facility] [id number] [facility] 2017-10-29 13:55:00 2017-10-29 15:02:00 Emergency ER ANURAG ESTEBAN [facility] [id number] [facility] 2016-08-28 11:26:00 2016-08-28 11:26:00 Outpatient EVARISTO ZURITA [facility] [id number] [facility]
--- NOTE | 2024-01-19 11:41 | EDPHYS ---
Physician Documentation [facility] Name: Sadiq Martinez Age: 24 yrs Sex: Male : 2000 Arrival Date: 01/19/2024 Time: 11:25 Bed 19 Private MD: ED Physician Saji Pedraza HPI: 01/18 11:41 This 24 yrs old Male presents to ER via Ambulatory with complaints of Sore ec2 Throat. 11:41 Patient arrives today for sore throat onset for several days. Reports odynophagia, as ec2 well as a hoarse voice. Patient reports fatigue. No vomiting, no diarrhea. No medication allergies.. Historical: - Allergies: 11:34 No Known Allergies; iw - Home Meds: 11:34 None [Active]; iw - PMHx: 11:34 None; iw - PSHx: 11:34 Knee - Left; iw - Immunization history:: Adult Immunizations not up to date. - Infectious Disease History:: Denies. - Social history:: Smoking status: Patient reports the use of cigarette tobacco products. ROS: 11:41 Constitutional: as per hpi ec2 Exam: 11:41 Constitutional: GEN: NAD Head: atraumatic Eyes: EOMI Ears: External ears are normal. ec2 Mouth: Erythema and swelling to the uvula noted, no occlusion identified, no exudates noted, anterior cervical lymphadenopathy noted. CV: regular rate LUNGS: no respiratory distress ABD: non-distended SKIN: no evidence of rashes MSK: no evidence of trauma Vital Signs: 11:33 BP 120 / 73; Pulse 87; Resp 18; Temp 98.2(O); Pulse Ox 99% ; Weight 61.23 kg; Height 5 iw ft. 8 in. ; Pain 6/10; 11:33 Body Mass Index 20.52 (61.23 kg, 172.72 cm) iw 11:33 Pain Scale: Adult iw MDM: 11:33 Medical Screening Exam initiated ec2 11:41 Data reviewed: vital signs, nurses notes. ED course: Patient arrives today for sore ec2 throat. Examination remarkable for HEENT findings as noted above. Will treat for uvulitis, additionally considered strep pharyngitis, deep space infection, Chris's angina, viral infection. Will forego lab work or CT imaging of the neck given reassuring evaluation and reassuring vital signs.. 01/18 11:33 Order name: Strep ec2 Administered Medications: 11:50 Drug: Dexamethasone IM 10 mg IM once Route: IM; Site: Other; ll1 11:58 Follow up: Response: No adverse reaction ll1 11:50 Drug: Viscous Lidocaine Mucous Membrane Liquid (4 %) 10 ml Mucous Membrane once Route: ll1 Mucous Membrane; 11:59 Follow up: Response: No adverse reaction ll1 11:50 Drug: Amoxicillin-Clavulanate PO 875 mg PO once Route: PO; ll1 11:59 Follow up: Response: No adverse reaction ll1 Disposition Summary: 01/19/24 11:40 Discharge Ordered Notes: Location: Home ec2 Condition: Stable ec2 Diagnosis - Uvulitis ec2 Followup: ec2 - With: Private Physician - When: - Reason: Re-evaluation by your physician Discharge Instructions: - Discharge Summary Sheet ec2 - Pharyngitis, [id number] ec2 Forms: - Medication Reconciliation Form ec2 - Antibiotic Education ec2 - Prescription Opioid Use ec2 - Patient Portal Instructions ec2 - Leadership Thank You Letter ec2 Prescriptions: - Augmentin 875-125 mg Oral tablet - take 1 tablet ORAL route every 12 hours for 7 days; 14 tablet; Refills: 0, ec2 Product Selection Permitted - Prednisone 20 mg Oral Tablet - take 2 tablets ORAL route once daily for 5 days; 10 tablet; Refills: 0, Product ec2 Selection Permitted Signatures: Dispatcher [employer] Chantelle Andre RN RN iw Dave Guillermo RN RN ll1 Saji Pedraza MD MD ec2 Corrections: (The following items were deleted from the chart) 11:33 11:33 Group A Streptococcus Rapid [id number] ordered. PILI ALEJANDRE
--- NOTE | 2024-01-19 11:41 | ER ---
Nurse's Notes [facility] Name: Sadiq Martinez Age: 24 yrs Sex: Male : 2000 Arrival Date: 01/19/2024 Time: 11:25 Bed 19 Private MD: Diagnosis: Uvulitis Presentation: 01/18 11:33 Chief complaint: Patient states: trouble breathing, throat sore and swollen, hard to iw eat or drink, no fever , symptoms started yesterday. Coronavirus screen: Client presents with at least one sign or symptom that may indicate coronavirus-19. Ebola Screen: No symptoms or risks identified at this time. Initial Sepsis Screen: Does the patient meet any 2 criteria? No. Patient's initial sepsis screen is negative. Does the patient have a suspected source of infection? No. Patient's initial sepsis screen is negative. Risk Assessment: Do you want to hurt yourself or someone else?. 11:33 Method Of Arrival: Ambulatory iw 11:33 Acuity: FERNANDO 4 iw Historical: - Allergies: 11:34 No Known Allergies; iw - Home Meds: 11:34 None [Active]; iw - PMHx: 11:34 None; iw - PSHx: 11:34 Knee - Left; iw - Immunization history:: Adult Immunizations not up to date. - Infectious Disease History:: Denies. - Social history:: Smoking status: Patient reports the use of cigarette tobacco products. Screenin:58 [facility] ED Fall Risk Assessment (Adult) History of falling in the last 3 months, iw including since admission No falls in past 3 months (0 pts) Confusion or Disorientation No (0 pts) Intoxicated or Sedated No (0 pts) Impaired Gait No (0 pts) Mobility Assist Device Used No (0 pt) Altered Elimination No (0 pt) Score/Fall Risk Level 0 - 2 = Low Risk Oriented to surroundings. Abuse screen: Denies threats or abuse. Denies injuries from another. Assessment: 11:30 General: Appears in no apparent distress. Behavior is calm, cooperative. Pain: iw Complains of pain in throat. Neuro: Level of Consciousness is awake, alert, obeys commands, Oriented to person, place, time, situation, Appropriate for age. Respiratory: Airway is patent Respiratory effort is even, unlabored, Breath sounds are clear. EENT: Throat is reddened. Derm: Skin is intact, is healthy with good turgor, Skin is dry, Skin is pink, warm \T\ dry. normal. Musculoskeletal: Range of motion: intact in all extremities. Vital Signs: 11:33 BP 120 / 73; Pulse 87; Resp 18; Temp 98.2(O); Pulse Ox 99% ; Weight 61.23 kg; Height 5 iw ft. 8 in. ; Pain 6/10; 11:33 Body Mass Index 20.52 (61.23 kg, 172.72 cm) iw 11:33 Pain Scale: Adult iw ED Course: 11:27 Patient arrived in ED. ra3 11:30 Saji Pedraza MD is Attending Physician. ec2 11:34 Triage completed. iw 11:35 Arm band placed on. iw 11:45 Dave Guillermo RN is Primary Nurse. ll1 11:45 Strep Sent. iw Administered Medications: 11:50 Drug: Dexamethasone IM 10 mg IM once Route: IM; Site: Other; ll1 11:58 Follow up: Response: No adverse reaction ll1 11:50 Drug: Viscous Lidocaine Mucous Membrane Liquid (4 %) 10 ml Mucous Membrane once Route: ll1 Mucous Membrane; 11:59 Follow up: Response: No adverse reaction ll1 11:50 Drug: Amoxicillin-Clavulanate PO 875 mg PO once Route: PO; ll1 11:59 Follow up: Response: No adverse reaction ll1 Outcome: 11:40 Discharge ordered by MD. ec2 11:58 Discharged to home ambulatory, iw 11:58 Condition: good 11:58 Discharge instructions given to patient, Instructed on discharge instructions, follow up and referral plans. medication usage, Demonstrated understanding of instructions, follow-up care, medications, Prescriptions given X 2, 11:59 Patient left the ED. ll1 18:48 Prescriptions given X called in prescription to [facility], left voice mail iw Signatures: Chantelle Chou RN RN iw Dave Guillermo RN RN ll1 Saji Pedraza MD MD ec2 Samia Solorio ra3 Corrections: (The following items were deleted from the chart) 11:38 11:33 BP 120 / 73; Pulse 87bpm; Resp 18bpm; Pulse Ox 99%; 61.23 kg; Height 5 ft. 8 in.; iw BMI: 20.5; Pain 6/10, Adult; iw
[2024-01-19] MEDS ORDERED: dexAMETHasone 10 MG/ML VIAL ONE (11:47)
[2024-01-19] MEDS ORDERED: LIDOCAINE VISCOUS 2% 10ML ORAL SOLN ONE (11:47)
[2024-01-19] MEDS ORDERED: AMOX/K CLAV 875 MG TAB ONE (11:47)
[2024-01-19 12:26] VITALS: BP 120/73; TEMP 98.2; O2SAT 99
== END 2024-01-19 11:59 | disposition home or self-care (01) ==
LOC: ER 11:25
DX: K12.2 Cellulitis and abscess of mouth (principal); Z72.0 Tobacco use
CPT/HCPCS: 87070; 87081; 96372; 99284; J1100

== ENCOUNTER 2024-06-26 18:44 | Emergency (ER) | payer SELFPAY ==
--- OUTSIDE RECORDS SUMMARY | 2024-06-26 18:48 | XMS REPORT | Continuity of Care Document ---
Author Name Unknown Address [address] [place] [address] [facility] Address [address] [place] [address] Care Team Providers Care Ehs Engineer Name Role Phone Pcp, Patient Does Not Have A Primary Care Physic satnam ANGÉLICA CARTER Attending Clinician Unavailable ANGÉLICA CARTER Attending Clinician Unavailable Angélica Carter DO Attending Clinician [phone] ONIEL PAULA Attending Clinician Unavailable elias Attending Clinician Unavailable Fang Birch MD Attending Clinician [phone] FANG BIRCH Attending Clinician Unavailable SILVINA BUSH III Attending Clinician UnavailSalima Peterson DO Attending Clinician [phone] ANURAG ESTEBAN Attending Clinician Unavailable EVARISTO OGLESBY Attending Clinician Unavailable elias Admitting Clinician Unavailable SILVINA BUSH III Admitting Clinician Unavaila ble Payers Payer Name Policy Type Policy Number Effective Date Expirati on Date Source [place] OUT OF [place] [id number] 2017 00:00:00 [place] [id number] 2014 00:00:00 Problems Condition Name Condition Details Condition Category Status Onset Date Resolution Date Last Treatment Date Treating Clinician Comments Source No known active problems No known active problems Disease [facility] Allergies, Adverse Reactions, Alerts Allergy Name Allergy Type Status Severity Reaction(s) Onset Date Inactive Date Treating Clinician Comments Source NO KNOWN ALLERGIE S Drug Class Active [facility] Social History Social Habit Start Date Stop Date Quantity Comments Source [facility] to SARS-CoV-2 (event) Not sure [facility] Sex assigned at 2000 00:00:00 2000 00:00:00 [facility] Smoking Status Start Date Stop Date Source Tobacco smoking consumption unknown [facility] Medications Ordered Medication Name Filled Medication Name Start Date Stop Date Current Medication? Ordering Clinician Indication Dosage Frequency Signature (SIG) Comments Components Source ketorolac (TORADOL) injection 15 mg 06-23 18:15: 00 06-23 17:29 :00 No 15mg 15 mg, Slow IV Push, ONCE, 1 dose, On Sun06/23/24 at 1315, Routine [facility] iopamidol (ISOVUE 370-500 mL) injection 70 mL 06-23 18:15: 00 06-23 17:12 :00 No [id number] 70mL 70 mL, Intravenou s, ONCE, 1 dose, On Sun06/23/24 at 1315, Routine [facility] NaCl 0.9% (NS) bolus infusion 1,000 mL 06-23 17:15: 00 06-23 17:45 :00 No 1000mL at 999 mL/hr, 1,000 mL, IV Infusion, ONCE, 1 dose, On Sun06/23/24 at 1215, [facility] pantoprazol e (PROTONIX) EC tablet 40 mg 06-23 16:30: 00 06-23 16:45 :00 No 40mg 40 mg, Oral, ONCE, 1 dose, On Sun06/23/24 at 1130, [facility] ondansetron (ZOFRAN (PF)) injection 4 mg 06-23 16:30: 00 06-23 16:47 :00 No 4mg 4 mg, Slow IV Push, ONCE, 1 dose, On Sun06/23/24 at 1130, Administer over 2-5 Minutes, 2 mL [facility] pantoprazol e 40 mg EC tablet 06-23 00:00: 00 Yes [id number] 40mg Take 1 tablet by mouth in the morning. [facility] sucralfate 1 gram tablet 06-23 00:00: 00 Yes [id number] 1g Take 1 tablet by mouth before meals and at bedtime. [facility] erythromyci n (ILOTYCIN) 5 mg/gram (0.5 %) ophthalmic ointment 0.5 Inch 11-25 09:15: 11-25 08:05 :00 No .5[in_u s] 0.5 Inch, Both Eyes, ONCE, 1 dose, Sun11/26/19 at 0415, [facility] HYDROcodone -acetaminop hen (NORCO) 10-325 mg tablet 1 tablet 11-25 09:15: 11-25 08:05 :00 No 1{tbl} 1 tablet, Oral, ONCE NOW, 1 dose, Sun11/26/19 at 0415, Routine [facility] traMADoL (ULTRAM) 50 mg tablet 11-25 00:00: 00 Yes [id number] 50mg Take 1 tablet by mouth every 6 (six) hours as needed for Pain (scale 7-10). Indication s: acute pain [facility] erythromyci n 5 mg/gram (0.5 %) ophthalmic ointment 11-25 00:00: 00 12-01 04:59 :00 No [id number] .5[in_u s] Place 0.5 Inches in both eyes 4 (four) times daily for 5 days. Continue until you follow up with eye doctor. [facility] ondansetron (ZOFRAN ODT) 4 mg disintegrat ing tablet 2018-03 00:00: 00 Yes [id number] 4mg Take 1 tablet by mouth every 8 (eight) hours as needed for Nausea and Vomiting (N/V). [facility] traMADol (ULTRAM) 50 mg tablet 2018-03 00:00: 00 Yes [id number] 50mg Take 1 tablet by mouth every 8 (eight) hours as needed for Pain (scale 4-6). [facility] cephALEXin (KEFLEX) 500 mg capsule 11-18 00:00: 00 11-26 04:59 :00 No [id number] 500mg Take 1 capsule by mouth 4 (four) times daily for 7 days. [facility] Vital Signs Vital Name Observation Time Observation Value Comments S ource Systolic blood pressure 2024-06-23 18:00:00 124 mm[Hg] [facility] Diastolic blood pressure 2024-06-23 18:00:00 66 mm[Hg] [facility] Heart rate 2024-06-23 18:00:00 69 /min [facility] Oxygen saturation in Arterial blood by Pulse oximetry 2024-06-23 18:00:00 99 /min [facility] Respiratory rate 2024-06-23 17:00:00 22 /min [facility] Body temperature 2024-06-23 15:56:00 36.94 Ely [facility] Body height 2024-06-23 15:55:00 172.7 cm [facility] Body weight 2024-06-23 15:55:00 63.504 kg [facility] BMI 2024-06-23 15:55:00 21.29 kg/m2 [facility] Systolic blood pressure 2019-11-26 07:17:00 128 mm[Hg] [facility] Diastolic blood pressure 2019-11-26 07:17:00 73 mm[Hg] [facility] Heart rate 2019-11-26 07:17:00 88 /min [facility] Body temperature 2019-11-26 07:17:00 36.11 Ely [facility] Respiratory rate 2019-11-26 07:17:00 18 /min [facility] Body weight 2019-11-26 07:17:00 63.504 kg [facility] Oxygen saturation in Arterial blood by Pulse oximetry 2019-11-26 07:17:00 99 /min [facility] Body temperature 2018-11-18 14:39:00 37.06 Ely [facility] Respiratory rate 2018-11-18 14:39:00 18 /min [facility] Body weight 2018-11-18 14:39:00 54.432 kg [facility] Oxygen saturation in Arterial blood by Pulse oximetry 2018-11-18 14:39:00 99 /min [facility] Systolic blood pressure 2018-11-18 14:39:00 105 mm[Hg] [facility] Diastolic blood pressure 2018-11-18 14:39:00 81 mm[Hg] [facility] Heart rate 2018-11-18 14:39:00 96 /min [facility] Procedures Procedure Date / Time Performed Performing Clinicia n Source CT ABDOMEN PELVIS W CONTRAST 2024-06-23 17:15:[facility]-23 16:46[facility] METABOLIC PANEL ([id number]) 2024-06-23 16:46:00 [facility] CBC WITH DIFF 2024-06-23 16:46:00 Angélica Carter [facility] URINALYSIS 2024-06-23 16:46:00 [facility] OF PRIVACY PRACTICES 2019-11-26 07:15:17 Doctor Unassigned, [place] [facility] CONSENT/REFUSAL FOR DIAGNOSIS AND TREATMENT 2019-11-26 07:14:49 Doctor Unassigned, [place] [facility] NOTICE OF PRIVACY PRACTICES 2018-11-18 14:29:19 Doctor Unassigned, [place] [facility] Encounters Start Date/Time End Date/Time Encounter Type Admission Type Attending [facility] Care Department Encounter ID Source 2022-05-23 18:33:05 Emergency HFD [facility] [id number] [facility] Depart ent 2024-06-23 10:57:00 2024-06-23 13:53:00 Emergency X ANGÉLICA CARTER JEREMY [facility] ERT [id number] [facility] 2024-06-23 10:57:00 2024-06-23 13:53:00 Emergency Angélica Carter [facility] [id number] [facility] 2022-05-23 17:17:00 2022-05-23 19:27:00 Emergency E ONIEL PAULA [facility] [id number] [facility] 2020-02-04 02:46:00 2020-02-04 02:46:00 Outpatient keffer_a [facility] [id number] [facility] 2019-11-26 02:18:00 2019-11-26 03:18:00 Emergency Fang Birch [facility] [id number] [facility] 2019-11-26 02:18:00 2019-11-26 02:18:00 Emergency X FANG BIRCH [facility] ERT [id number] [facility] 2019-02-20 18:22:53 2019-02-20 20:16:00 Emergency X SILVINA BUSH III [facility] ERT [id number] [facility] 2018-11-18 09:41:11 2018-11-18 10:30:00 Emergency Salima Chou [facility] [id number] [facility] 2017-10-29 13:55:00 2017-10-29 15:02:00 Emergency ER ANURAG ESTEBAN [facility] [id number] [facility] 2016-08-28 11:26:00 2016-08-28 11:26:00 Outpatient EVARISTO ZURITA [facility] [id number] [facility] Results Test Description Test Time Test Comments Results Resul t Comments Source CT Abdomen pelvis w contrast 7 17:39:29 EXAM: CT ABDOMEN AND PELVIS WITH CONTRAST HISTORY: LLQ pain, tenderness COMPARISON: None. TECHNIQUE: Contiguous axial imaging was performed following administrationof intravenous contrast. Coronal and sagittal reconstructions wereobtained. FINDINGS: The lung bases are clear. The liver, spleen, gallbladder, pancreas, adrenal glands and kidneys arenormal. The aorta and iliac arteries are normal in caliber. The bladder isunremarkable. The prostate gland is not significantly enlarged. The appendix is normal. There is moderate fecal material in the colon. Nobowel wall thickening or obstruction. There is no free fluid or lymphadenopathy. [facility] Notes Date/Time Note Provider Source 2024-06-23 13:53:01 Patient received discharge instructions and voiced understanding, documentation acknowledged and signed. Pt education provided on prescription use and signs of worsening symptoms. PIV DC'd without complications, site appears healthy, hemostatic, pressure dressing applied to site, catheter intact. Pt alert and oriented x4, RR equal and unlabored, no sign of acute distress on discharge, patient walked to the lobby. Pt. Left ED with all belongings. Denise Elizalde RN [facility] 2024-06-23 12:20:[address] Pt requesting pain med. Provider notified. Pain 09/25. Alia Tolliver RN [facility] 2024-06-23 10:55:11 Familia Parra is a 24 year old male presents to the ED ambulatory with reports of abd pain, nausea, vomiting and diarrhea x several years. Pt reports the pain is worse. Pt to room for further eval Sultana Us RN [facility]
[2024-06-26] MEDS ORDERED: DIPHENHYDRAMINE 50 MG/ML VIAL ONE (19:34)
[2024-06-26] MEDS ORDERED: METOCLOPRAMIDE 10 MG/2mL INJ ONE (19:34)
[2024-06-26] MEDS ORDERED: NA CHLORIDE 0.9% 1,000 ML ONE (19:35)
[2024-06-26] MEDS ORDERED: FAMOTIDINE 20 MG/2 ML VIAL IV ONE (19:35)
[2024-06-26 19:42] LABS: Specific Gravity 1.013 (1.005-1.030); Urine Bilirubin NEGATIVE (Negative); Urine Blood Negative (Negative); Urine Clarity Clear (Clear); Urine Color Light-Yellow (Yellow); Urine Glucose NEGATIVE (Negative); Urine Ketones NEGATIVE (Negative); Urine Microscopic Reflex YN NO UMIC; Urine Nitrite NEGATIVE (Negative); Urine Protein NEGATIVE (Negative); Urine Urobilinogen Normal (Normal); Urine pH 5.5 (5.0-7.0)
[2024-06-26 19:43] LABS: Absolute Eosinophils 0.2 K/uL (0-0.5); Absolute Monocytes 1.4 K/uL (0.1-1.3); Absolute Neutrophil 18.5 K/uL (1.8-8.0); Basophils % 0.1 % (0-1.3); Hematocrit 49.9 % (39.6-49.0); Hemoglobin 17.6 g/dL (13.6-17.9); Lymphocytes % 9.2 % (15.3-44.8); MCH 29.9 pg (27.0-35.0); MCHC 35.2 g/dL (32.0-36.0); MCV 84.9 fL (80-100); MPV 8.6 fL (7.6-11.3); Monocytes % 6.3 % (3.3-12.3); Neutrophils % 83.4 % (41.7-73.7); Nucleated Red Blood Cells % 0.1 % (0-0); Platelets 222 thou/uL (152-406); RBC Red Blood Cell Count 5.88 M/uL (4.33-5.43); Red Cell Distribution Width 14.3 % (12.1-15.2)
[2024-06-26 19:58] LABS: Albumin 4.6 g/dL (3.4-5.0); Albumin/Globulin Ratio 1.3 (1.1-1.8); Anion Gap 9.8 mEq/L (5.0-15.0); Bilirubin Total 0.7 mg/dL (0.2-1.0); Globulin 3.6 g/dL (2.3-3.5); Potassium 3.8 mEq/L (3.5-5.1); Protein, Total 8.2 g/dL (6.4-8.2)
[2024-06-26] MEDS ORDERED: ONDANSETRON 4 MG/2 ML VIAL ONE (21:31)
--- NOTE | 2024-06-26 21:50 | RAD REPORT ---
EXAMINATION: CT Abdomen Pelvis W Contrast CLINICAL INDICATION: Male, 24 years old. lower abdomen pain TECHNIQUE: CT abdomen and pelvis was performed, after the administration of IV contrast, as per [facility] protocol. Axial, sagittal and coronal reconstructions were obtained. One or more of the following dose reduction techniques were used: Automated exposure control, adjustment of the mA and k V according to patient size, and iterative reconstruction. Unless otherwise specified, incidental findings do not require dedicated imaging follow-up. COMPARISON: 06/29/2023 FINDINGS: LOWER CHEST: The visualized lung bases are clear. LIVER: Normal in size and contour. No focal lesion. BILIARY SYSTEM: No suspicious abnormalities. SPLEEN: Normal size. No focal lesion. PANCREAS: No mass, ductal dilation, or dary-pancreatic fluid. ADRENALS: Normal; no mass. KIDNEYS: Normal size and contour. No hydronephrosis. URINARY BLADDER: Unremarkable. GASTROINTESTINAL TRACT: Nonspecific fluid opacification of nondistended small and large bowel loops. No evidence of free air, significant intra-abdominal free fluid, bowel obstruction or abscess. APPENDIX: Normal appendix. LYMPH NODES: No lymphadenopathy. MUSCULOSKELETAL: No acute or suspicious osseous abnormality. ADDITIONAL FINDINGS: None. IMPRESSION: Nonspecific fluid opacification of nondistended small and large bowel loops, could relate to diarrhea l state. No other acute or concerning abnormalities seen in the abdomen or pelvis.
--- NOTE | 2024-06-26 23:17 | ER ---
Nurse's Notes [facility] Name: Sadiq Martinez Age: 24 yrs Sex: Male : 2000 Arrival Date: 06/26/2024 Time: 18:44 Bed 13 Private MD: Diagnosis: Nausea with vomiting, unspecified;Diarrhea, unspecified;Abdominal pain, unspecified Presentation: 06/26 19:03 Chief complaint: Patient states: abdominal pain and vomiting X5 days. worsened today. iw Coronavirus screen: Client denies travel out of the [place] in the last 14 days. At this time, the client does not indicate any symptoms associated with coronavirus-19. Ebola Screen: No symptoms or risks identified at this time. Initial Sepsis Screen: Does the patient meet any 2 criteria? No. Patient's initial sepsis screen is negative. Does the patient have a suspected source of infection? No. Patient's initial sepsis screen is negative. Risk Assessment: Do you want to hurt yourself or someone else? Patient reports no desire to harm self or others. Onset of symptoms is unknown. 19:03 Method Of Arrival: Ambulatory 19:03 Acuity: FERNANDO 3 iw Triage Assessment: 19:05 General: Appears in no apparent distress. uncomfortable, Behavior is cooperative, iw agitated, fussy. Pain: Complains of pain in abdomen. EENT: No deficits noted. No signs and/or symptoms were reported regarding the EENT system. Neuro: No deficits noted. Busch Agitation-Sedation Scale (RASS): 0 - Alert and Calm Level of Consciousness is awake, alert, obeys commands, Oriented to person, place, time, situation. Cardiovascular: No deficits noted. Denies chest pain, shortness of breath, Capillary refill < 3 seconds Clubbing of nail beds is absent JVD is absent Patient's skin is warm and dry. Respiratory: No deficits noted. Airway is patent Respiratory effort is even, unlabored, Respiratory pattern is regular, symmetrical. GI: Abdomen is flat, non-distended, Reports lower abdominal pain, cramping, diarrhea, nausea, vomiting. : No signs and/or symptoms were reported regarding the genitourinary system. Derm: No deficits noted. No signs and/or symptoms reported regarding the dermatologic system. Skin is intact, is healthy with good turgor, Skin is dry, Skin is normal, Skin temperature is warm. Musculoskeletal: No deficits noted. No signs and/or symptoms reported regarding the musculoskeletal system. Circulation, motion, and sensation intact. Range of motion: intact in all extremities. Historical: - Allergies: 19:05 No Known Allergies; iw - Home Meds: 19:05 Antacid M oral [Active]; iw - PMHx: 19:05 None; iw - PSHx: 19:05 Knee - Left; iw - Immunization history:: Adult Immunizations up to date. - Infectious Disease History:: Denies. - Social history:: Smoking status: Patient reports the use of cigarette tobacco products, smokes one pack cigarettes per day. Patient uses alcohol, occasionally. Patient/guardian denies using street drugs. Screenin:45 [facility] ED Fall Risk Assessment (Adult) History of falling in the last 3 months, dd2 including since admission No falls in past 3 months (0 pts) Confusion or Disorientation No (0 pts) Intoxicated or Sedated No (0 pts) Impaired Gait No (0 pts) Mobility Assist Device Used No (0 pt) Altered Elimination No (0 pt) Score/Fall Risk Level 0 - 2 = Low Risk Oriented to surroundings, Maintained a safe environment, Educated pt \T\ family on fall prevention, incl call for assistance when getting out of bed, Assessed \T\ reinforced patient's understanding of fall precautions, Hourly rounding (assess needs \T\ fall precautionary measures) done. Abuse screen: Denies threats or abuse. Denies injuries from another. Nutritional screening: No deficits noted. Tuberculosis screening: No symptoms or risk factors identified. Assessment: 19:45 General: Appears in no apparent distress. uncomfortable, Behavior is calm, cooperative, dd2 appropriate for age. Pain: Complains of pain in right lower quadrant and left lower quadrant Pain does not radiate. Pain currently is 10 out of 10 on a pain scale. Quality of pain is described as burning, crampy. Neuro: No deficits noted. Level of Consciousness is awake, alert, obeys commands, Oriented to person, place, time, situation, Appropriate for age. Cardiovascular: No deficits noted. Patient's skin is warm and dry. Respiratory: No deficits noted. Airway is patent Respiratory effort is even, unlabored, Respiratory pattern is regular, symmetrical. GI: Abdomen is flat, non-distended, Pt is actively vomiting bile, Bowel sounds present X 4 quads. Abd is soft X 4 quads Abdomen is tender to palpation in right lower quadrant and left lower quadrant Reports lower abdominal pain, cramping, diarrhea, nausea, vomiting. : No deficits noted. No signs and/or symptoms were reported regarding the genitourinary system. EENT: No deficits noted. No signs and/or symptoms were reported regarding the EENT system. Derm: No deficits noted. No signs and/or symptoms reported regarding the dermatologic system. Skin is healthy with good turgor, Skin is dry, Skin is normal, Skin temperature is warm. Musculoskeletal: No deficits noted. No signs and/or symptoms reported regarding the musculoskeletal system. Circulation, motion, and sensation intact. Range of motion: intact in all extremities. Vital Signs: 19:03 BP 124 / 68; Pulse 88; Resp 18 S; Temp 98.3(O); Pulse Ox 100% on R/A; Weight 63.5 kg iw (R); Height 5 ft. 8 in. (R); 19:45 BP 128 / 72; Pulse 72; Resp 17; Pulse Ox 100% on R/A; dd2 21:45 BP 123 / 59; Pulse 84; Resp 16; Pulse Ox 100% on R/A; dd2 22:30 BP 133 / 72; Pulse 73; Resp 16; Pulse Ox 98% on R/A; dd2 19:03 Body Mass Index 21.29 (63.50 kg, 172.72 cm) iw [place] Coma Score: 19:45 Eye Response: spontaneous(4). Motor Response: obeys commands(6). Verbal Response: dd2 oriented(5). Total: 15. ED Course: 11:30 IV discontinued, intact, bleeding controlled, No redness/swelling at site. Pressure dd2 dressing applied. 18:47 Patient arrived in ED. im 18:49 Joselo Patrick PA is PHCP. cp 18:49 Inder Patel DO is Attending Physician. cp 19:05 Triage completed. iw 19:05 Arm band placed on right wrist. iw 19:17 RAMÓN HAMMOND, RN is Primary Nurse. dd2 19:38 CBC with Diff Sent. dd2 19:38 CMP Sent. dd2 19:38 Lipase Sent. dd2 19:38 Urinalysis w/ reflexes Sent. dd2 19:38 No provider procedures requiring assistance completed. Initial lab(s) drawn, by me, dd2 sent to lab. Urine collected: clean catch specimen, annalise colored. Inserted saline lock: 20 gauge in left antecubital area, using aseptic technique. Blood collected. Flushed with 10 mL NS. 19:45 Patient has correct armband on for positive identification. Bed in low position. Call dd2 light in reach. Side rails up X 1. Client placed on continuous cardiac and pulse oximetry monitoring. NIBP monitoring applied. Door closed. Noise minimized. Warm blanket given. Pillow given. Verbal reassurance given. 19:45 Patient maintains SpO2 saturation greater than 95% on room air. dd2 21:01 CT Abd/Pelvis - IV Contrast Only In Process Unspecified. EDMS 23:16 Florin Joyce MD is Referral Physician. cp 23:51 Provided Education on: D/C EDUCATION, MEDICATION AND F/U. dd2 Administered Medications: 19:44 Drug: metoCLOPramide IVP 10 mg IVP once; over 1 to 2 minutes Route: IVP; Site: left dd2 antecubital; 20:00 Follow up: Response: No adverse reaction dd2 19:44 Drug: diphenhydrAMINE IVP 25 mg IVP once Route: IVP; Site: left antecubital; dd2 20:00 Follow up: Response: No adverse reaction dd2 19:45 Drug: Famotidine IVP 20 mg IVP once; dilute with 10 mL 0.9% NaCl; give over 2 minutes dd2 Route: IVP; Site: left antecubital; 20:00 Follow up: Response: No adverse reaction dd2 19:45 Drug: NS 0.9% IV 1000 ml IV at 1 bolus Per protocol; to be given as a bolus over 60 dd2 minutes Route: IV; Rate: 1 bolus; Site: left antecubital; 20:51 Follow up: IV Status: Completed infusion; IV Intake: 1000ml dd2 21:34 Drug: Ondansetron IVP 4 mg IVP once; over 2 minutes Route: IVP; Site: left antecubital; dd2 21:49 Follow up: Response: No adverse reaction dd2 22:39 Not Given (Patient Refused): [id number] mg IM once dd2 Medication: 19:45 VIS not applicable for this client. dd2 Intake: 20:51 IV: 1000ml; Total: 1000ml. dd2 Outcome: 11:30 Discharged to home ambulatory, dd2 11:30 Condition: stable 11:30 Discharge instructions given to patient, Instructed on discharge instructions, follow up and referral plans. medication usage, Demonstrated understanding of instructions, follow-up care, medications, Prescriptions given X 2, 23:17 Discharge ordered by MD. tang 23:53 Patient left the ED. dd2 Signatures: Dispatcher [employer] Chantelle Andre, RN RN Joselo Vinson PA PA cp Jordan, Nathan nj Mendoza, Itzel im DAVIS, DIANA, RN RN dd2 Corrections: (The following items were deleted from the chart) 20:18 20:17 Radiology exam delayed due to lab results not completed at this time. (HCG) ne test not completed at this time. [email or web address]
--- NOTE | 2024-06-26 23:17 | EDPHYS ---
Physician Documentation [facility] Name: Sadiq Martinez Age: 24 yrs Sex: Male : 2000 Arrival Date: 06/26/2024 Time: 18:44 Bed 13 Private MD: ED Physician Inder Patel HPI: 06/26 19:15 This 24 yrs old Male presents to ER via Ambulatory with complaints of cp Vomiting/Diarrhea, Abdominal Pain. 19:15 The patient presents to the emergency department with nausea, with "dry heaves", cp vomiting, that is continuous, diarrhea, that is intermittent, abdominal pain. Onset: The symptoms/episode began/occurred 5 day(s) ago. Possible causes: unknown. Associated signs and symptoms: Pertinent positives: anorexia, Pertinent negatives: constipation, fever, GI bleeding. Severity of symptoms: in the emergency department the symptoms are unchanged despite home interventions. Patient reports being seen recently at [facility] emergency department for similar symptoms and has upcoming appt with GI. Historical: - Allergies: 19:05 No Known Allergies; iw - Home Meds: 19:05 Antacid M oral [Active]; iw - PMHx: 19:05 None; iw - PSHx: 19:05 Knee - Left; iw - Immunization history:: Adult Immunizations up to date. - Infectious Disease History:: Denies. - Social history:: Smoking status: Patient reports the use of cigarette tobacco products, smokes one pack cigarettes per day. Patient uses alcohol, occasionally. Patient/guardian denies using street drugs. ROS: 19:20 Constitutional: Positive for poor PO intake, Negative for body aches, chills, fever, cp 19:20 Eyes: Negative for injury, pain, redness, and discharge, cp 19:20 ENT: Negative for drainage from ear(s), ear pain, sore throat, difficulty swallowing, difficulty handling secretions, 19:20 Cardiovascular: Negative for chest pain, 19:20 Respiratory: Negative for cough, shortness of breath, wheezing, 19:20 Abdomen/GI: Positive for abdominal pain, nausea, vomiting, and diarrhea, anorexia, Negative for hematemesis, black/tarry stool, rectal bleeding, 19:20 Neuro: Negative for altered mental status, dizziness, headache, weakness, 19:20 All other systems are negative, Exam: 19:25 Constitutional: The patient appears in no acute distress, alert, awake, cp non-diaphoretic, non-toxic, well developed, well nourished, uncomfortable, 19:25 Head/Face: Normocephalic, atraumatic. cp 19:25 Eyes: Periorbital structures: appear normal, Conjunctiva: normal, no exudate, no injection, Sclera: no appreciated abnormality, Lids and lashes: appear normal, bilaterally, 19:25 ENT: External ear(s): are unremarkable, Nose: is normal, Mouth: Lips: moist, Oral mucosa: moist, Posterior pharynx: Airway: no evidence of obstruction, patent, 19:25 Chest/axilla: Inspection: normal, 19:25 Cardiovascular: Rate: normal, Rhythm: regular, 19:25 Respiratory: the patient does not display signs of respiratory distress, Respirations: normal, no use of accessory muscles, no retractions, labored breathing, is not present, Breath sounds: are clear throughout, no decreased breath sounds, no stridor, no wheezing, 19:25 Abdomen/GI: Inspection: abdomen appears normal, Bowel sounds: active, all quadrants, Palpation: soft, in all quadrants, severe abdominal tenderness, in the right lower quadrant and left lower quadrant, rebound tenderness, is not appreciated, voluntary guarding, is elicited in the right lower quadrant and left lower quadrant, 19:25 Back: CVA tenderness, is absent, 19:25 Skin: no rash present. 19:25 Neuro: Orientation: to person, place \\T\\ time. Mentation: is normal, Motor: moves all fours, strength is normal, Sensation: no obvious gross deficits, Vital Signs: 19:03 BP 124 / 68; Pulse 88; Resp 18 S; Temp 98.3(O); Pulse Ox 100% on R/A; Weight 63.5 kg iw (R); Height 5 ft. 8 in. (R); 19:45 BP 128 / 72; Pulse 72; Resp 17; Pulse Ox 100% on R/A; dd2 21:45 BP 123 / 59; Pulse 84; Resp 16; Pulse Ox 100% on R/A; dd2 22:30 BP 133 / 72; Pulse 73; Resp 16; Pulse Ox 98% on R/A; dd2 19:03 Body Mass Index 21.29 (63.50 kg, 172.72 cm) [facility] Coma Score: 19:45 Eye Response: spontaneous(4). Motor Response: obeys commands(6). Verbal Response: dd2 oriented(5). Total: 15. MDM: 19:10 Medical Screening Exam initiated cp 19:30 Differential diagnosis: Nonspecific abd pain, gastritis, appendicitis, viral cp gastroenteritis, gastroenteritis, colitis, diverticulitis. 23:16 Data reviewed: vital signs, nurses notes, lab test result(s), radiologic studies, CT cp scan, and as a result, I will discharge patient. 23:16 Consideration of Admission/Observation Escalation of care including cp admission/observation considered. I considered the following discharge prescriptions or medication management in the emergency department Medications were administered in the Emergency Department. See MAR. Response to treatment: the patient's symptoms have markedly improved after treatment, and as a result, I will discharge patient. Special discussion: Based on the patient's Hx, exam, and Dx evaluation, there is no indication for emergent surgery or inpatient Tx. It is understood by the patient/guardian that if the Sx's persist or worsen they need to return immediately for re-evaluation. ED course: VSS. Nausea and pain markedly improved, vomiting resolved. Will discharge to home for continued monitoring. 06/26 19:11 Order name: CBC with Diff; Complete Time: 20:10 cp 06/26 20:10 Interpretation: Normal except: WBC 22.20; RBC 5.88; HCT 49.9; STU% 83.4; LYM% 9.2; NEUT cp A 18.5; MNA 1.4. 06/26 19:11 Order name: CMP; Complete Time: 20:10 cp 06/26 19:11 Order name: Lipase; Complete Time: 20:10 cp 06/26 19:11 Order name: Urinalysis w/ reflexes; Complete Time: 20:10 cp 06/26 20:12 Order name: CT Abd/Pelvis - IV Contrast Only; Complete Time: 22:12 cp 06/26 22:13 Interpretation: Report reviewed. 06/26 19:11 Order name: IV Saline Lock; Complete Time: 19:38 cp 06/26 19:11 Order name: Labs collected and sent; Complete Time: 19:38 cp 06/26 22:13 Order name: PO challenge; Complete Time: 22:35 cp Administered Medications: 19:44 Drug: metoCLOPramide IVP 10 mg IVP once; over 1 to 2 minutes Route: IVP; Site: left dd2 antecubital; 20:00 Follow up: Response: No adverse reaction dd2 19:44 Drug: diphenhydrAMINE IVP 25 mg IVP once Route: IVP; Site: left antecubital; dd2 20:00 Follow up: Response: No adverse reaction dd2 19:45 Drug: Famotidine IVP 20 mg IVP once; dilute with 10 mL 0.9% NaCl; give over 2 minutes dd2 Route: IVP; Site: left antecubital; 20:00 Follow up: Response: No adverse reaction dd2 19:45 Drug: NS 0.9% IV 1000 ml IV at 1 bolus Per protocol; to be given as a bolus over 60 dd2 minutes Route: IV; Rate: 1 bolus; Site: left antecubital; 20:51 Follow up: IV Status: Completed infusion; IV Intake: 1000ml dd2 21:34 Drug: Ondansetron IVP 4 mg IVP once; over 2 minutes Route: IVP; Site: left antecubital; dd2 21:49 Follow up: Response: No adverse reaction dd2 22:39 Not Given (Patient Refused): mg IM once dd2 Disposition Summary: 06/26/24 23:17 Discharge Ordered Notes: Location: Home cp Problem: new cp Symptoms: have improved cp Condition: Stable cp Diagnosis - Nausea with vomiting, unspecified cp - Diarrhea, unspecified cp - Abdominal pain, unspecified cp Followup: cp - With: Florin Joyce MD - When: 2 - 3 days - Reason: Recheck today's complaints Discharge Instructions: - Discharge Summary Sheet cp - Abdominal Pain, Adult cp - Food Choices to Help Relieve Diarrhea, Adult cp - Diarrhea, Adult cp - Nausea and Vomiting, Adult cp Forms: - Medication Reconciliation Form cp - Antibiotic Education cp - Prescription Opioid Use cp - Patient Portal Instructions cp - Leadership Thank You Letter cp Prescriptions: - Reglan 10 mg Oral Tablet - take 1 tablet ORAL route every 6 hours take 30 minutes before meals and at cp bedtime; 20 tablet; Refills: 0, Product Selection Permitted - dicyclomine 20 mg Oral tablet - take 1 tablet ORAL route 4 times per day; 30 tablet; Refills: 0, Product cp Selection Permitted Signatures: [employer] José Antonio, Chantelle, RN RN iw Joselo Patrick PA PA cp DAVIS, DIANA, RN RN dd2
== END 2024-06-26 23:53 | disposition home or self-care (01) ==
LOC: ER 18:44
DX: R11.2 Nausea with vomiting, unspecified (principal); R19.7 Diarrhea, unspecified; R10.31 Right lower quadrant pain; F17.210 Nicotine dependence, cigarettes, uncomplicated
CPT/HCPCS: 36415; 74177; 80053; 81003; 83690; 85025; 96361; 96374; 96375; 99284; J1200; J2405; J2765; J7030; Q9967

== ENCOUNTER 2024-10-25 19:30 | Emergency (ER) | payer SELFPAY ==
--- OUTSIDE RECORDS SUMMARY | 2024-10-25 19:33 | XMS REPORT | Continuity of Care Document ---
Author Name Unknown Address [address] [place] [address] [facility] Address [address] [facility] [address] [place] [address] Care Team Providers Care Data Reviewer Name Role Phone Pcp, Patient Does Not Have A Primary Care Physic satnam Simon Garvin PA-C Attending Clinician [phone] SIMON GARVIN Attending Clinician Unavailable SIMON GARVIN Attending Clinician Unavailable Campaigns, Generic Provider Attending Clinician Unavailable [facility] Attending Clinician Unavailable ANGÉLICA RIBEIRO Attending Clinician Unavailable ANGÉLICA RIBEIRO Attending Clinician Unavailable Angélica Ribeiro DO Attending Clinician [phone] ONIEL PAULA Attending Clinician Unavailable elias Attending Clinician Unavailable Fang Maravilla MD Attending Clinician [phone] FANG MARAVILLA Attending Clinician Unavailable SILVINA BUSH III Attending Clinician UnavailSalima Peterson DO Attending Clinician ANURAG ESTEBAN Attending Clinician Unavailable EVARISTO OGLESBY Attending Clinician Unavailable ANGÉLICA RIBEIRO Admitting Clinician Unavailable elias Admitting Clinician Unavailable SILVINA BUSH III Admitting Clinician Unavaila ke Payers Payer Name Policy Type Policy Number Effective Date Expirati on Date Source [place] [id number] 2014 00:00:00 Problems Condition Name Condition Details Condition Category Status Onset Date Resolution Date Last Treatment Date Treating Clinician Comments Source No known active problems No known active problems Disease [facility] Allergies, Adverse Reactions, Alerts Allergy Name Allergy Type Status Severity Reaction(s) Onset Date Inactive Date Treating Clinician Comments Source NO KNOWN ALLERGIE S Drug Class Active [facility] Social History Social Habit Start Date Stop Date Quantity Comments Source Exposure to SARS-CoV-2 (event) Not sure [facility] History of tobacco use Cigarette Smoker [facility] Tobacco use and exposure 2024-06-30 00:00:00 2024-06-30 00:00:00 Smokeless tobacco non-user [facility] Alcoholic beverage intake 2024-06-30 00:00:00 2024-06-30 00:00:00 Current drinker of alcohol (finding) [facility] History of Social function 2024-06-30 00:00:00 2024-06-30 00:00:00 [facility] Alcohol Comment 2024-06-30 00:00:00 2024-06-30 00:00:00 Social [facility] Sex assigned at 2000 00:00:00 2000 00:00:00 [facility] Smoking Status Start Date Stop Date Source Smokes tobacco daily 2024-06-30 00:00:00 [facility] Tobacco smoking consumption unknown [facility] Medications Ordered Medication Name Filled Medication Name Start Date Stop Date Current Medication? Ordering Clinician Indication Dosage Frequency Signature (SIG) Comments Components Source dicyclomine 20 mg tablet 14 08:24: 18 06-30 00:00 :00 No 20mg Take 1 tablet by mouth 4 (four) times daily. [facility] ondansetron 4 mg disintegrat ing tablet 06-30 00:00: 00 Yes [id number] 4mg Take 1 tablet by mouth every 8 (eight) hours as needed for Nausea and Vomiting (N/V). [facility] dicyclomine 20 mg tablet 06-30 00:00: 00 Yes [id number] 20mg Take 1 tablet by mouth 4 (four) times daily. [facility] ketorolac (TORADOL) injection 15 mg 06-23 18:15: 00 06-23 17:29 :00 No 15mg 15 mg, Slow IV Push, ONCE, 1 dose, On Sun06/23/24 at 1315, Routine [facility] iopamidol (ISOVUE 370-500 mL) injection 70 mL 06-23 18:15: 00 06-23 17:12 :00 No [id number] 70mL 70 mL, Intravenou s, ONCE, 1 dose, On Sun06/23/24 at 1315, Routine [facility] NaCl 0.9% (NS) bolus infusion 1,000 mL 06-23 17:15: 00 06-23 17:45 :00 No 1000mL at 999 mL/hr, 1,000 mL, IV Infusion, ONCE, 1 dose, On Sun06/23/24 at 1215, SHAYAN [facility] pantoprazol e (PROTONIX) EC tablet 40 mg 06-23 16:30: 00 06-23 16:45 :00 No 40mg 40 mg, Oral, ONCE, 1 dose, On Sun06/23/24 at 1130, SHAYAN [facility] ondansetron (ZOFRAN (PF)) injection 4 mg 06-23 16:30: 00 06-23 16:47 :00 No 4mg 4 mg, Slow IV Push, ONCE, 1 dose, On Sun06/23/24 at 1130, Administer over 2-5 Minutes, 2 mL [facility] pantoprazol e 40 mg EC tablet 06-23 00:00: 00 Yes [id number] 40mg Take 1 tablet by mouth in the morning. [facility] sucralfate 1 gram tablet 06-23 00:00: 00 Yes [id number] 1g Take 1 tablet by mouth before meals and at bedtime. [facility] erythromyci n (ILOTYCIN) 5 mg/gram (0.5 %) ophthalmic ointment 0.5 Inch 11-25 09:15: 11-25 08:05 :00 No .5[in_u s] 0.5 Inch, Both Eyes, ONCE, 1 dose, Sun11/26/19 at 041, SHAYAN [facility] HYDROcodone -acetaminop hen (NORCO) 10-325 mg tablet 1 tablet 11-25 09:15: 11-25 08:05 :00 No 1{tbl} 1 tablet, Oral, ONCE NOW, 1 dose, Sun11/26/19 at 0415, Routine [facility] traMADoL (ULTRAM) 50 mg tablet 11-25 00:00: 00 Yes [id number] 50mg Take 1 tablet by mouth every 6 (six) hours as needed for Pain (scale 7-10). Indication s: acute pain [facility] erythromyci n 5 mg/gram (0.5 %) ophthalmic ointment 11-25 00:00: 00 12-01 04:59 :00 No [id number] .5[in_u s] Place 0.5 Inches in both eyes 4 (four) times daily for 5 days. Continue until you follow up with eye doctor. [facility] traMADol (ULTRAM) 50 mg tablet 2018-03 00:00: 00 Yes [id number] 50mg Take 1 tablet by mouth every 8 (eight) hours as needed for Pain (scale 4-6). [facility] ondansetron (ZOFRAN ODT) 4 mg disintegrat ing tablet 2018-03 00:00: 00 06-30 00:00 :00 No [id number] 4mg Take 1 tablet by mouth every 8 (eight) hours as needed for Nausea and Vomiting (N/V). [facility] cephALEXin (KEFLEX) 500 mg capsule 11-18 00:00: 00 11-26 04:59 :00 No [id number] 500mg Take 1 capsule by mouth 4 (four) times daily for 7 days. [facility] Vital Signs Vital Name Observation Time Observation Value Comments S leobardo Systolic blood pressure 2024-06-30 13:00:00 117 mm[Hg] [facility] Diastolic blood pressure 2024-06-30 13:00:00 66 mm[Hg] [facility] Heart rate 2024-06-30 13:00:00 60 /min [facility] Body temperature 2024-06-30 13:00:00 36.06 Ely [facility] Respiratory rate 2024-06-30 13:00:00 18 /min [facility] Body height 2024-06-30 13:00:00 172.7 cm [facility] Body weight 2024-06-30 13:00:[address] [facility] BMI 2024-06-30 13:00:00 20.69 kg/m2 [facility] Oxygen saturation in Arterial blood by Pulse oximetry 2024-06-30 13:00:00 98 /min [facility] Systolic blood pressure 2024-06-23 18:00:00 124 mm[Hg] [facility] Diastolic blood pressure 2024-06-23 18:00:00 66 mm[Hg] [facility] Heart rate 2024-06-23 18:00:00 69 /min [facility] Oxygen saturation in Arterial blood by Pulse oximetry 2024-06-23 18:00:00 99 /min [facility] Respiratory rate 2024-06-23 17:00:00 22 /min [facility] Body temperature 2024-06-23 15:56:00 36.94 Ely [facility] Body height 2024-06-23 15:55:00 172.7 cm [facility] Body weight 2024-06-23 15:55:[address] [facility] BMI 2024-06-23 15:55:00 21.29 kg/m2 [facility] Systolic blood pressure 2019-11-26 07:17:00 128 mm[Hg] [facility] Diastolic blood pressure 2019-11-26 07:17:00 73 mm[Hg] [facility] Heart rate 2019-11-26 07:17:00 88 /min [facility] Body temperature 2019-11-26 07:17:00 36.11 [facility] Respiratory rate 2019-11-26 07:17:00 18 /min [facility] Body weight 2019-11-26 07:17:[address] [facility] Oxygen saturation in Arterial blood by Pulse oximetry 2019-11-26 07:17:00 99 /min [facility] Body temperature 2018-11-18 14:39:00 37.06 [facility] Respiratory rate 2018-11-18 14:39:00 18 /min [facility] Body weight 2018-11-18 14:39:[address] [facility] Oxygen saturation in Arterial blood by Pulse oximetry 2018-11-18 14:39:00 99 /min [facility] Systolic blood pressure 2018-11-18 14:39:00 105 mm[Hg] [facility] Diastolic blood pressure 2018-11-18 14:39:00 81 mm[Hg] [facility] Heart rate 2018-11-18 14:39:00 96 /min [facility] Procedures Procedure Date / Time Performed Performing Clinicia n Source CT ABDOMEN PELVIS W CONTRAST 2024-06-23 17:15:14 Angélica Ribeiro [facility] LIPASE 2024-06-23 16:46:00 Angélica Ribeiro [facility] COMP. METABOLIC PANEL ([id number]) 2024-06-23 16:46:00 Angélica Ribeiro [facility] CBC WITH DIFF 2024-06-23 16:46:00 Angélica Ribeiro [facility] URINALYSIS 2024-06-23 16:46:00 Angélica Ribeiro [facility] NOTICE OF PRIVACY PRACTICES 2019-11-26 07:15:17 Doctor Unassigned, [place] [facility] CONSENT/REFUSAL FOR DIAGNOSIS AND TREATMENT 2019-11-26 07:14:49 Doctor Unassigned, [place] [facility] NOTICE OF PRIVACY PRACTICES 2018-11-18 14:29:19 Doctor Unassigned, [place] [facility] Encounters Start Date/Time End Date/Time Encounter Type Admission Type Attending [facility] Care Facility Care Department Encounter ID Source 2022-05-23 18:33:05 Emergency [facility] [id number] [facility] ent 2024-07-07 00:00:00 2024-08-09 18:21:56 Patient Secure Simon Garvin [facility] ([facility]) [id number] [id number] [id number] [facility] 2024-07-21 10:00:00 2024-07-21 10:00:00 Outpatient R SIMON GARVIN [facility] [id number] [facility] 2024-07-02 00:00:00 2024-07-02 11:04:00 Letter (Out) Campaigns, Generic Provider Campaigns, Generic Provider [facility] ([facility] [id number] [id number] [id number] [facility] 2024-06-30 08:30:00 2024-06-30 08:45:00 Rn Admissions Visit [facility] Simon Garvin [facility] ([facility]) [id number] [id number] [id number] [facility] 2024-06-30 08:00:00 2024-06-30 08:30:00 Office Visit Simon Garvin [facility] ([facility]) [id number] [id number] [id number] [facility] 2024-06-30 08:00:00 2024-06-30 08:00:00 Outpatient SIMON LERNER [facility] [id number] [facility] 2024-06-23 10:57:00 2024-06-23 13:53:00 Emergency X QUINTIN ANGÉLICAANGÉLICA ACOSTA [facility] ERT [id number] [facility] 2024-06-23 10:57:00 2024-06-23 13:53:00 Emergency Quintin Angélica [facility] ([facility]) [id number] [id number] [id number] [id number] [facility] 2022-05-23 17:17:00 2022-05-23 19:27:00 Emergency E ONIEL PAULA [facility] [address] [address] 2019-11-26 02:18:00 2019-11-26 03:18:00 Emergency Fang Maravilla [facility] [id number] [id number] [id number] [facility] 2019-11-26 02:18:00 2019-11-26 02:18:00 Emergency X FANG MARAVILLA [facility] ERT [id number] [facility] 2019-02-20 18:22:53 2019-02-20 20:16:00 Emergency X ELEAZAR IIISILVINA [facility] ERT [id number] [facility] 2018-11-18 09:41:11 2018-11-18 10:30:00 Emergency Salima Chou [facility] [id number] [id number] [id number] [id number] [facility] 2017-10-29 13:55:00 2017-10-29 15:02:00 Emergency ER GIANNONE, ANURAG [facility] [id number] [facility] 2016-08-28 11:26:00 2016-08-28 11:26:00 Outpatient EVARISTO ZURITA [facility] [id number] [facility] Results Test Description Test Time Test [...] There is no free fluid or lymphadenopathy. [facility] Notes Date/Time Note Provider Source 2024-06-30 08:30:00 Images from the original note were not included. Venipuncture collection performed by clean technique on the right anticubitus. Total of 1 attempts were made. Slight pressure and a bandage/dressing were applied to the site(s). The patient experienced no complications. 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 Denise Elizalde RN [facility] 2024-06-23 12:20:[address] Pt requesting pain med. Provider notified. Pain 09/25. Alia Tolliver RN [facility] 2024-06-23 10:55:11 Familia Parra is a 24 year old male presents to the ED ambulatory with reports of abd pain, nausea, vomiting and diarrhea x several years. Pt reports the pain is worse. Pt to room for further eval Sultana Us RN [facility]
[2024-10-25] MEDS ORDERED: NA CHLORIDE 0.9% 1,000 ML ONE (19:40)
[2024-10-25 20:05] LABS: Absolute Lymphocytes (CBC) 3.6 K/uL (0.7-4.9); Hematocrit 43.7 % (39.6-49.0); Hemoglobin 14.9 g/dL (13.6-17.9); MCH 29.0 pg (27.0-35.0); MCHC 34.0 g/dL (32.0-36.0); MCV 85.2 fL (80-100); MPV 8.4 fL (7.6-11.3); Nucleated RBC Absolute Count 0.0 (0-0); Nucleated Red Blood Cells % 0.0 % (0-0); RBC Red Blood Cell Count 5.14 M/uL (4.33-5.43); White Blood Count 15.60 thou/uL (4.3-10.9)
[2024-10-25 20:29] LABS: ALT/SGPT 27 U/L (16-61); AST/SGOT 14 U/L (15-37); Albumin 4.2 g/dL (3.4-5.0); Albumin/Globulin Ratio 1.4 (1.1-1.8); Alkaline Phosphatase 112 U/L (45-117); Anion Gap 9.6 mEq/L (5.0-15.0); BUN Blood Urea Nitrogen 13 mg/dL (7-18); Globulin 3.0 g/dL (2.3-3.5); Glucose Level 88 mg/dL (74-106); Magnesium 2.0 mg/dL (1.6-2.4); Potassium 3.6 mEq/L (3.5-5.1); Troponin High Sensitivity 3.0 pg/mL (<58.9)
[2024-10-25 20:32] LABS: Bilirubin Indirect, Calculated 0.2 mg/dL (0.2-0.8)
--- NOTE | 2024-10-25 21:01 | RAD REPORT ---
EXAMINATION: ONE VIEW CHEST XR CLINICAL INDICATION: Male, 24 years old.,CHEST PAIN TECHNIQUE: Frontal chest projection is submitted. Examination is limited by patient positioning and t echnique. COMPARISON: 06/29/2023. FINDINGS: The lungs are well inflated and clear. No pneumothorax or sizable effusion. The heart is normal in s ize. Mediastinal contours are unremarkable. IMPRESSION: No acute intrathoracic abnormalities.
--- NOTE | 2024-10-25 21:22 | ER ---
Nurse's Notes [facility] Name: Sadiq Martinez Age: 24 yrs Sex: Male : 2000 Arrival Date: 10/25/2024 Time: 19:30 Bed 8 Private MD: Diagnosis: Chest pain, unspecified;Weakness Presentation: 10/25 19:34 Chief complaint: EMS states: chest pain that started an hour ago. Coronavirus screen: cp4 Client denies travel out of the [place] in the last 14 days. At this time, the client does not indicate any symptoms associated with coronavirus-19. Ebola Screen: Patient negative for fever greater than or equal to 101.5 degrees Fahrenheit, and additional compatible Ebola Virus Disease symptoms Patient denies exposure to infectious person. Patient denies travel to an Ebola-affected area in the 21 days before illness onset. No symptoms or risks identified at this time. Initial Sepsis Screen: Does the patient meet any 2 criteria? HR > 90 bpm. No. Patient's initial sepsis screen is negative. Does the patient have a suspected source of infection? No. Patient's initial sepsis screen is negative. Risk Assessment: Do you want to hurt yourself or someone else? Patient reports no desire to harm self or others. Onset of symptoms was October 25, 2024 at 18:30. 19:34 Method Of Arrival: EMS: [place] [id number] 19:34 Acuity: FERNANDO 3 cp4 Triage Assessment: 19:38 General: Appears in no apparent distress. uncomfortable, Behavior is calm, cooperative, cp4 appropriate for age. Pain: Complains of pain in chest Pain does not radiate. Pain currently is 3 out of 10 on a pain scale. EENT: No signs and/or symptoms were reported regarding the EENT system. Neuro: Level of Consciousness is awake, alert, obeys commands, Oriented to person, place, time, situation. Cardiovascular: Patient's skin is warm and dry. Cardiovascular: Rhythm is sinus rhythm. Respiratory: Airway is patent Respiratory effort is even, unlabored. GI: No signs and/or symptoms were reported involving the gastrointestinal system. : No signs and/or symptoms were reported regarding the genitourinary system. Derm: No signs and/or symptoms reported regarding the dermatologic system. Musculoskeletal: No signs and/or symptoms reported regarding the musculoskeletal system. Historical: - Allergies: 19:38 No Known Allergies; cp4 - PSHx: 19:38 Knee - Left; cp4 - Immunization history:: Adult Immunizations up to date. - Infectious Disease History:: Denies. - Social history:: Smoking status: Patient reports the use of cigarette tobacco products, smokes one pack cigarettes per day. Screenin:40 [facility] ED Fall Risk Assessment (Adult) History of falling in the last 3 months, cp4 including since admission No falls in past 3 months (0 pts) Confusion or Disorientation No (0 pts) Intoxicated or Sedated No (0 pts) Impaired Gait No (0 pts) Mobility Assist Device Used No (0 pt) Altered Elimination No (0 pt) Score/Fall Risk Level 0 - 2 = Low Risk Oriented to surroundings, Maintained a safe environment, Assessed \T\ reinforced patient's understanding of fall precautions, Hourly rounding (assess needs \T\ fall precautionary measures) done. Abuse screen: Denies threats or abuse. Denies injuries from another. Nutritional screening: No deficits noted. Tuberculosis screening: No symptoms or risk factors identified. Never had TB. Assessment: 19:40 Reassessment: No changes from previously documented assessment. Pain: Pain began 1 hour cp4 ago. Vital Signs: 19:34 BP 121 / 69; Pulse 89; Resp 18; Temp 98.6; Pulse Ox 100% ; Weight 58.97 kg; Height 5 cp4 ft. 8 in. ; Pain 3/10; 20:59 BP 112 / 64; Pulse 74; Resp 18; Pulse Ox 100% ; cp4 19:34 Body Mass Index 19.77 (58.97 kg, 172.72 cm) cp4 19:34 Pain Scale: Adult cp4 ED Course: 19:31 Patient arrived in ED. cp4 19:32 Светлана Mar FNP-C is [facility]. kb 19:32 Inder Patel DO is Attending Physician. kb 19:34 Sumaya Kaiser is Primary Nurse. cp4 19:38 Triage completed. cp4 19:38 Arm band placed on right wrist. Patient placed in an exam room, on a stretcher. cp4 19:40 Bed in low position. Call light in reach. Side rails up X2. Client placed on continuous cp4 cardiac and pulse oximetry monitoring. NIBP monitoring applied. equipment monitor phototypesetting on. Pulse ox on. NIBP on. 19:40 No provider procedures requiring assistance completed. Patient maintains SpO2 cp4 saturation greater than 95% on room air. 19:50 Initial lab(s) drawn, by ED staff, sent to lab. EKG done, by ED staff, reviewed by santosh GARCIA. Inserted saline lock: 20 gauge in right antecubital area, using aseptic technique. Blood collected. Flushed with 10 mL NS. 20:26 XRAY Chest (1 view) In Process Unspecified. EDMS 21:31 Provided Education on: chest pain. cp4 21:31 intact, bleeding controlled, No redness/swelling at site. Pressure dressing applied. cp4 Administered Medications: 19:51 Drug: NS 0.9% IV 1000 ml IV at 1000 ml once; to be given as a bolus over 60 minutes cp4 Route: IV; Rate: 1000 ml; Site: right antecubital; 21:33 Follow up: IV Status: Completed infusion cp4 Medication: 19:40 VIS not applicable for this client. cp4 Outcome: 21:21 Discharge ordered by . paula 21:31 Discharged to home ambulatory, cp4 21:31 Condition: stable 21:31 Discharge instructions given to patient, Instructed on discharge instructions, follow up and referral plans. Patient left prior to receiving discharge instructions. 21:32 Patient left the ED. cp4 Signatures: Dispatcher [employer] Светлана Bae FNP-C FNP-Ckb Potter, Christina cp4
--- NOTE | 2024-10-25 21:22 | EDPHYS ---
Physician Documentation [facility] Name: Sadiq Martinez Age: 24 yrs Sex: Male : 2000 Arrival Date: 10/25/2024 Time: 19:30 Bed 8 Private MD: ED Physician Inder Patel HPI: 10/25 20:06 This 24 yrs old Male presents to ER via EMS with complaints of Chest Pain. kb 20:06 Pt is a 24 year old male who presents for chest pressure and generalized weakness that kb started today. States he spent the day at work and then went to the bar, had some whiskey and beer. Symptoms started shortly after that. Denies shortness of breath, nausea, vomiting. Historical: - Allergies: 19:38 No Known Allergies; cp4 - PSHx: 19:38 Knee - Left; cp4 - Immunization history:: Adult Immunizations up to date. - Infectious Disease History:: Denies. - Social history:: Smoking status: Patient reports the use of cigarette tobacco products, smokes one pack cigarettes per day. ROS: 20:06 Constitutional: As per HPI kb Exam: 20:06 Constitutional: This is a well developed, well nourished patient who is awake, alert, kb and in no acute distress. Head/Face: Normocephalic, atraumatic. ENT: Moist Mucous membranes Cardiovascular: Regular rate Respiratory: Respirations even and unlabored. No increased work of breathing. Talking in full sentences Abdomen/GI: Soft, non-tender. No distention Skin: Warm, dry with normal turgor. Normal color. MS/ Extremity: Pulses equal, no cyanosis. Neurovascular intact. Full, normal range of motion. Neuro: Awake and alert, GCS 15, oriented to person, place, time, and situation. 20:06 ECG was reviewed by the Attending Physician. Vital Signs: 19:34 BP 121 / 69; Pulse 89; Resp 18; Temp 98.6; Pulse Ox 100% ; Weight 58.97 kg; Height 5 cp4 ft. 8 in. ; Pain 3/10; 20:59 BP 112 / 64; Pulse 74; Resp 18; Pulse Ox 100% ; cp4 19:34 Body Mass Index 19.77 (58.97 kg, 172.72 cm) cp4 19:34 Pain Scale: Adult cp4 MDM: 19:32 Medical Screening Exam initiated kb 20:09 Differential diagnosis: arrhythmia, acute mi, rhabdomyolysis, abnormal electrolytes, kb dehydration. Data reviewed: vital signs, nurses notes. Historians other than the Patient: EMS: [facility]. 21:20 Counseling: I had a detailed discussion with the patient and/or guardian regarding the kb historical points, exam findings, and any diagnostic results supporting the discharge/admit diagnosis, lab results, radiology results, the need for outpatient follow up, a family practitioner, to return to the emergency department if symptoms worsen or persist or if there are any questions or concerns that arise at home. ED course: Pt demanded to have everything removed so he could leave. Pt states "I want all of this off of me." . ED course: IV removed with catheter tip intact. 10/25 19:36 Order name: Basic Metabolic Panel; Complete Time: 20:34 kb 10/25 19:36 Order name: CBC with Diff; Complete Time: 20:10 kb 10/25 19:36 Order name: LFT's; Complete Time: 20:34 kb 10/25 19:36 Order name: Magnesium; Complete Time: 20:34 kb 10/25 19:36 Order name: Troponin HS; Complete Time: 20:34 kb 10/25 19:36 Order name: CPK; Complete Time: 20:34 kb 10/25 19:36 Order name: ETOH Level; Complete Time: 20:22 kb 10/25 19:36 Order name: XRAY Chest (1 view); Complete Time: 21:04 kb 10/25 19:36 Order name: EKG; Complete Time: 19:37 kb 10/25 19:36 Order name: Cardiac monitoring; Complete Time: 19:41 kb 10/25 19:36 Order name: EKG - Nurse/Tech; Complete Time: 19:51 kb 10/25 19:36 Order name: IV Saline Lock; Complete Time: 19:51 kb 10/25 19:36 Order name: Labs collected and sent; Complete Time: 19:51 kb 10/25 19:36 Order name: O2 Per Protocol; Complete Time: 19:41 kb 10/25 19:36 Order name: O2 Sat Monitoring; Complete Time: 19:41 kb EC:06 Rate is 86 beats/min. Rhythm is regular. QRS [place] is Normal. HI interval is normal at kb 148 msec. QRS interval is normal at 94 msec. QT interval is normal at 423 msec. Administered Medications: 19:51 Drug: NS 0.9% IV 1000 ml IV at 1000 ml once; to be given as a bolus over 60 minutes cp4 Route: IV; Rate: 1000 ml; Site: right antecubital; 21:33 Follow up: IV Status: Completed infusion cp4 Disposition: 22:06 Co-signature as Attending Physician, Inder Patel DO. ms3 Disposition Summary: 10/25/24 21:21 Discharge Ordered Notes: Location: Home kb Condition: Stable kb Diagnosis - Chest pain, unspecified kb - Weakness kb Followup: kb - With: Emergency Department - When: As needed - Reason: Worsening of condition Followup: kb - With: Private Physician - When: 2 - 3 days - Reason: Recheck today's complaints, Continuance of care, Re-evaluation by your physician Discharge Instructions: - Discharge Summary Sheet kb - Nonspecific Chest Pain, Adult, [id number] kb - Weakness, [id number] kb Forms: - Medication Reconciliation Form kb - Antibiotic Education kb - Prescription Opioid Use kb - Patient Portal Instructions kb - Leadership Thank You Letter kb Signatures: Dispatcher [employer] EDMS Светлана Mar, JESSIE-C DIE TROUBLE SHOOTER-Inder Hernandez DO DO ms3 Sumaya Kaiser cp4
[2024-10-25 22:02] VITALS: O2SAT 100
[2024-10-25 22:03] VITALS: BP 121/69; TEMP 98.6
== END 2024-10-25 21:32 | disposition home or self-care (01) ==
LOC: ER 19:30
DX: R07.89 Other chest pain (principal); R53.1 Weakness; F17.210 Nicotine dependence, cigarettes, uncomplicated
CPT/HCPCS: 36415; 71045; 80048; 80076; 82077; 82550; 83735; 84484; 85025; 93005; 96360; 96361; 99285; J7030